=== PATIENT | female | born 1950 | race Caucasian/White ===

== ENCOUNTER → 2017-01-10 | Outpatient (CLI) | payer MEDICARE ==
[2017-01-10 14:41] LABS: ABSOLUTE EOSINOPHILS # (AUTO) 0.1 10^3/uL (0.0-0.6); ABSOLUTE LYMPHOCYTES (AUTO) 0.4 10^3/uL (0.5-4.7); ABSOLUTE MONOCYTES (AUTO) 0.4 10^3/uL (0.1-1.4); ABSOLUTE NEUT (AUTO) 3.5 10^3/uL (1.7-8.2); BASOPHILS % (AUTO) 0.8 % (0-2); EOSINOPHILS % (AUTO) 1.1 % (0-6); HEMATOCRIT 36.5 % (36.0-47.0); HEMOGLOBIN 12.3 g/dL (12.0-15.5); HGB HCT DIFFERENCE 0.4; LYMPHOCYTES % (AUTO) 9.9 % (13-45); MEAN CORPUSCULAR HEMOGLOBIN 30.2 pg (27.0-33.4); MEAN CORPUSCULAR HGB CONC 33.7 g/dL (32.0-36.0); MEAN CORPUSCULAR VOLUME 90 fl (80-97); MONOCYTES % (AUTO) 9.4 % (3-13); RED BLOOD COUNT 4.07 10^6/uL (3.72-5.28); RED CELL DISTRIBUTION WIDTH 15.3 % (11.5-14.0); SEGMENTED NEUTROPHILS % (AUTO) 78.8 % (42-78); WHITE BLOOD COUNT 4.5 10^3/uL (4.0-10.5)
== END ==
LOC: OD 13:09
PROVIDERS: ATTEND Specialist
DX: R10.9 Unspecified abdominal pain (principal); R97.0 Elevated carcinoembryonic antigen [CEA]; C25.0 Malignant neoplasm of head of pancreas
CPT/HCPCS: 36415; 82378; 85025

== ENCOUNTER → 2017-03-13 | Outpatient (CLI) | payer MEDICARE ==
[~2017-03-13] MED LIST: AMINOPHYLLINE INJ/PF 250 MG/10 ML SDV IV ONE; REGADENOSON INJ 0.4 MG/5 ML DISP.SYRIN IV ONE
--- NOTE | 2017-03-14 14:35 | RADIOLOGY REPORT ---
STRESS TEST REPORT PATIENT NAME: ALEX CAICEDO ROOM#: DATE OF SERVICE: 03/13/2017 AGE: 66Y ORDER#: [id number] REFERRING MD: BERNABE JOY M.D., [facility] INDICATION: For assessment of chest pains. PROCEDURE PERFORMED REST/STRESS SINGLE ISOTOPE CARDIOLITE SPECT IMAGING WITH IV LEXISCAN STRESS AND GATED SPECT IMAGING CLINICAL HISTORY This is a 66 year old female with no known coronary artery disease, but has coronary risk factors of hypercholesterolemia and family history of NC. Current symptomatology includes chest pains. PROCEDURE The patient received IV Lexiscan 0.4 mg infused over 10 seconds and flushed. The resting heart rate was 62 bpm and increased to 92 bpm at end infusion. The patient had symptoms of feeling strange in the head from shortness of breath, but no chest pains. The resting 12 lead EKG showed normal sinus rhythm or coronary sinus rhythm at 64 bpm, ST segments were normal. At end infusion, a few mild, nonspecific STT changes were seen in the inferolateral leads up to 0.5 mm depression. Myocardial perfusion imaging was performed at rest 60 minutes following injection of 11.43 mCi Cardiolite. Ten seconds after the IV Lexiscan injection, patient was injected with 34 mCi Cardiolite and flushed. Gated post stress tomographic imaging was performed 60 minutes after stress. FINDINGS The overall quality of the study is poor. There was significant bowel uptake scattering into the inferior wall of the left ventricle on both the rest and stress studies. The left ventricular cavity is noted to be normal in size on both the rest and stress studies. There is no evidence of abnormal transient ischemic dilatation of the left ventricle. The TID ratio is 1.03. The SPECT images show no IV Lexiscan induced reversible perfusion defects and no fixed perfusion defects. The gated SPECT imaging shows normal motion contraction for all LV segments. The left ventricular ejection fraction was calculated to be 64%. IMPRESSION: MYOCARDIAL PERFUSION IMAGING IS NORMAL. THERE IS NO IV LEXISCAN INDUCED REVERSIBLE ISCHEMIA OR FIXED PERFUSION DEFECTS IN THE LEFT VENTRICLE. OVERALL LEFT VENTRICULAR SYSTOLIC FUNCTION WAS NORMAL WITH NO REGIONAL WALL MOTION ABNORMALITY. EJECTION FRACTION WAS 64%. NO PRIOR STUDIES FOR COMPARISON. INTERPRETING PHYSICIAN: CRISTA MOON M.D. /: KEISHA TT: [id number] ID: [id number] /: [id number] TD: [id number] JOB: [id number] cc:CRISTA MOON M.D. > [place]
== END ==
LOC: RAD 06:20
PROVIDERS: ATTEND Family Medicine
DX: R07.9 Chest pain, unspecified (principal)
CPT/HCPCS: 93017; 78452; A9500; J2785; J0280; Q9969

== ENCOUNTER → 2017-10-02 | Outpatient (CLI) | payer MEDICARE ==
--- NOTE | 2017-10-03 09:32 | RADIOLOGY REPORT (SQ) ---
EXAM DESCRIPTION: CT LUNG CANCER SCREENING COMPLETED DATE/TIME: 10/02/2017 9:42 am REASON FOR STUDY: F17.211 NICOTINE DEPENDENCE, CIGARETTES, IN REMISSION F17.211 NICOTINE DEPENDENCE , CIGARETTES, IN REMISSION Has the patient had a Chest CT scan within the past year? No Was the patient offered tobacco cessation counseling? Yes Was the patient engaged in shared decision making for this test? Yes Does the patient have signs or symptoms of Lung Cancer? No Is the patient a smoker? No How many packs per year? 365 How many years since quitting smoking? 3 years Patients age: 67 COMPARISON: None. TECHNIQUE: Low Dose CT scan performed of the chest without intravenous contrast for purposes of scre ening for lung cancer. Images reviewed with lung, soft tissue and bone windows. Reconstructed coron al and sagittal MPR images reviewed. All images stored on PACS. All CT scanners at this facility use dose modulation, iterative reconstruction, and/or weight based d osing when appropriate to reduce radiation dose to as low as reasonably achievable (ALARA). [facility]: Dose Right [facility]: CareDose [facility]: Dose Right [facility]: Teradose 4D [facility]: Smart [place] [employer] RADIATION DOSE: Up-to-date CT equipment and radiation dose reduction techniques were employed. CTDIv ol: 2.1 mGy. DLP: 83 mGy-cm. mGy. . LIMITATIONS: No technical limitations. FINDINGS: LUNG NODULES: Description: solid nodule(s) < 6mm. Size: Less than 4 mm diameter right l ateral lower lobe subpleural surface axial image 382/531. Less than 5 mm diameter, right lateral low er lobe subpleural surface axial image 390/531. REMAINING LUNGS AND PLEURA: No pleural effusions or calcifications. No pneumothorax. No scarrin g or interstitial changes. HILAR AND MEDIASTINAL STRUCTURES: No identified masses. No abnormal nodes. HEART AND VASCULAR STRUCTURES: No aortic aneurysm. No pericardial effusion. No cardiac devices. CORONARY ARTERY CALCIFICATIONS: Mild to moderate calcifications. UPPER ABDOMEN: No significant findings. Small hiatal hernia, old ventral hernia repair with mesh. F ine anatomic detail of upper abdominal structures not provided by CT low dose technique. THYROID AND OTHER SOFT TISSUES: No masses. No adenopathy. BONES: No significant finding. OTHER: No other significant findings. IMPRESSION: BENIGN FINDINGS IN THE LUNGS. NO OTHER CLINICALLY SIGNIFICANT/POTENTIALLY CLINICALLY SIGNIFICANT FINDINGS LUNGRADS: LUNGRADS: 2 BENIGN APPEARANCE OR BEHAVIOR. NODULES WITH A VERY LOW LIKELIHOOD OF BECOMIN G A CLINICALLY ACTIVE CANCER DUE TO SIZE OR LACK OF GROWTH. MODIFIER: NONE. RECOMMENDATION: Continue annual screening with LDCT in 12 months. COMMENT: CRITERIA: Solid nodule(s): < 6 mm; new < 4 mm. Part solid nodule(s): < 6 mm total diameter on baseline screening. Non solid nodule(s) (GGN): < 20 mm OR ? 20 and unchanged or slowly growing. Category 3 or 4 modules unchanged for ? 3 months. TECHNICAL DOCUMENTATION: JOB ID: [id number] Quality ID # [id number]: Final reports with documentation of one or more dose reduction techniques (e.g., Au tomated exposure control, adjustment of the mA and/or kV according to patient size, use of iterative reconstruction technique) 2011 [employer]
== END ==
LOC: RAD 09:25
PROVIDERS: ATTEND Family Medicine
DX: F17.211 Nicotine dependence, cigarettes, in remission (principal)
CPT/HCPCS: G0297

== ENCOUNTER 2017-10-08 07:58 | Day surgery (SDC) | payer MEDICARE, MEDICAID ==
--- NOTE | 2017-10-04 10:28 | HISTORY AND PHYSICAL E ---
History and Physical NAME: ALEX CAICEDO : 1950 AGE: 67Y ADMITTED: 10/05/2017 ROOM: HISTORY OF PRESENT ILLNESS: The patient does have history of polyps. She did have colonoscopy 2016, difficult colonoscopy. She did have right hemicolectomy. She did have tubular adenoma transverse colon and left colon tubular adenoma. MEDICATIONS: Advair, simvastatin, and vitamins. SOCIAL HISTORY: . She smokes electronic cigarettes. PAST SURGICAL HISTORY: She did have partial colectomy right ascending colon. REVIEW OF SYSTEMS: RESPIRATORY: COPD. CARDIAC: High cholesterol. FAMILY HISTORY: Father CA of prostate. Mom CA of the stomach. PHYSICAL EXAMINATION: VITAL SIGNS: Blood pressure 120/80, pulse 80, respirations 18, temperature 98. HEAD, EARS, EYES, NOSE AND THROAT: Normal. ABDOMEN: Soft. NEUROLOGIC: Exam negative. LABORATORY DATA: Recent CBC shows white count 12, hemoglobin 36. Her CEA is 2.1. Biopsy polyps 2014 showing adenoma polyp transverse colon, adenoma polyp left colon. CONCLUSION: Sessile colorectal polyps left colon and transverse colon. PLAN: Colonoscopy to be done in the OR with anesthesia standby, admit 10/05. DICTATING PHYSICIAN: ROSALIA LAZARO M.D. [id number] PHY#: [id number] ID: [id number] JOB#: [id number] ACCT: [id number] cc:ROSALIA LAZARO M.D. >
[~2017-10-08 07:58] MED LIST changes: -AMINOPHYLLINE INJ/PF 250 MG/10 ML SDV IV ONE; +LACTATED RINGERS 1000 ML IV PRN; +LIDOCAINE 0.5% INJ-PF (5 MG/ML) 50 ML SDV SUBCUT PRN; -REGADENOSON INJ 0.4 MG/5 ML DISP.SYRIN IV ONE
[2017-10-08] MEDS ORDERED: FENTANYL CITRATE INJ/PF 100 MCG/2 ML AMPUL ONE (09:50)
[2017-10-08] MEDS ORDERED: MIDAZOLAM 2 MG/2 ML INJ ONE (09:50)
[2017-10-08] MEDS ORDERED: PROPOFOL INJ 200 MG/20 ML VIAL IV ONE (09:51)
[2017-10-08] MEDS ORDERED: ONDANSETRON HCL INJ/PF 4 MG/2 ML SDV ONE (09:59)
[2017-10-08] MEDS ORDERED: GLUCAGON,HUMAN RECOMB 1 MG INJ ONE (10:40)
[2017-10-08] MEDS ORDERED: DIPHENHYDRAMINE HCL 50 MG/ML VIAL IV PRN (10:59)
[2017-10-08] MEDS ORDERED: PROMETHAZINE HCL INJ 25 MG/1 ML VIAL IV PRN (10:59)
[2017-10-08] MEDS ORDERED: FENTANYL CITRATE INJ/PF 100 MCG/2 ML AMPUL IV PRN ×3 (10:59)
[2017-10-08 12:03] LABS: ABSOLUTE LYMPHOCYTES (AUTO) 0.4 10^3/uL (0.5-4.7); ABSOLUTE MONOCYTES (AUTO) 0.7 10^3/uL (0.1-1.4); ABSOLUTE NEUT (AUTO) 6.4 10^3/uL (1.7-8.2); BASOPHILS % (AUTO) 0.2 % (0-2); EOSINOPHILS % (AUTO) 0.3 % (0-6); HEMATOCRIT 36.1 % (36.0-47.0); HEMOGLOBIN 12.3 g/dL (12.0-15.5); HGB HCT DIFFERENCE 0.8; LYMPHOCYTES % (AUTO) 5.9 % (13-45); MEAN CORPUSCULAR HEMOGLOBIN 30.5 pg (27.0-33.4); MEAN CORPUSCULAR HGB CONC 34.2 g/dL (32.0-36.0); MEAN CORPUSCULAR VOLUME 89 fl (80-97); RED BLOOD COUNT 4.04 10^6/uL (3.72-5.28); RED CELL DISTRIBUTION WIDTH 14.9 % (11.5-14.0); SEGMENTED NEUTROPHILS % (AUTO) 84.6 % (42-78); WHITE BLOOD COUNT 7.6 10^3/uL (4.0-10.5)
--- NOTE | 2017-10-08 12:11 | OPERATIVE REPORT E ---
Operative Report NAME: ALEX CAICEDO : 1950 AGE: 67Y DATE OF SURGERY: 10/08/2017 ROOM: PREOPERATIVE DIAGNOSES: 1. HISTORY OF POLYPS. 2. HISTORY OF RIGHT COLON RESECTIONS. POSTOPERATIVE DIAGNOSIS: MULTIPLE POLYPS IN THE PROXIMAL COLON, PROXIMAL TO THE ANASTOMOSIS, ABOUT 6 TO 8 POLYPS. SURGEON: ROSALIA LAZARO M.D. PROCEDURE: The patient had 6 TO 8 polyps between the anastomosis and the Urszula ink, which was injected somewhere in the mid-transverse colon. Above the Urszula ink to anastomosis, there were 6 to 8 polyps. They were all sessile. They all looked like adenomatous polyps. Multiple biopsies obtained. The distal colon, after the Urszula ink, looks normal. Descending colon normal and redundant. Rectosigmoid, there is a pedunculated polyp, which was resected with no difficulties. A pedunculated polyp in the rectosigmoid junction resected. Rectal exam normal. Rectosigmoid showed pedunculated polyp was seen on the way out. This was resected. Descending colon redundant. Difficult to intubate. Patient was done under anesthesia, standby propofol. Transverse colon as mentioned. Urszula ink in the middle. Proximal showed multiple polyps in ascending colon resected on previous surgery. CONCLUSION: Six to 8 colorectal polyps proximal to the Urszula ink injection. Rectosigmoid polyp resected. Procedure done in the OR with Anesthesia standby. PLAN: Patient needs exploratory lap. Most likely, she needs intraoperative colonoscopy prior to resection of the proximal colon. Baseline CBC, CEA, full liquid diet today. Expedite surgical consult, pending biopsy results. DICTATING PHYSICIAN: ROSALIA LAZARO M.D. [id number] PHY#: [id number] ID: [id number] JOB#: [id number] ACCT: [id number] cc:ROSALIA LAZARO M.D. >
--- NOTE | 2017-10-08 12:12 | DISCHARGE SUMMARY E ---
Discharge Summary NAME: ALEX CAICEDO : 1950 AGE: 67Y ADMITTED: 10/08/2017 DISCHARGED: 10/08/2017 HISTORY: Patient is 67, known to me. She had a colonoscopy 2005. It was a difficult colonoscopy. She did have right hemicolectomy, tubular adenoma in the left colon. Today's colonoscopy was completed to the anastomosis. Multiple polyps were seen proximally. Biopsy obtained. Urszula ink was used as a marker. The Urszula ink was proximal to the multiple right colon polyps. There was 1 pedunculated polyp in the rectosigmoid area, which was resected with a snare. DISCHARGE PLAN: Full liquid diet today. Hold aspirin and nonsteroidal 5 days. Repeat CBC, CEA, chem profile. Consider surgical consult after biopsy and pathology report available. DICTATING PHYSICIAN: ROSALIA LAZARO M.D. [id number] PHY#: [id number] ID: [id number] JOB#: [id number] ACCT: [id number] cc:ROSALIA LAZARO M.D. >
[2017-10-08 12:22] LABS: ALANINE AMINOTRANSFERASE 37 U/L (9-52); ALBUMIN 3.9 g/dL (3.5-5.0); ALKALINE PHOSPHATASE 65 U/L (38-126); ANION GAP 12 (5-19); ASPARTATE AMINO TRANSFERASE 23 U/L (14-36); BILIRUBIN,DIRECT 0.3 mg/dL (0.0-0.4); BILIRUBIN,TOTAL 0.5 mg/dL (0.2-1.3); BLOOD UREA NITROGEN 8 mg/dL (7-20); CALCIUM 9.6 mg/dL (8.4-10.2); CARBON DIOXIDE 24 mmol/L (22-30); CHLORIDE 102 mmol/L (98-107); CREATININE RESULT 0.76 mg/dL (0.52-1.25); GLUCOSE 102 mg/dL (75-110); POTASSIUM 3.9 mmol/L (3.6-5.0); SODIUM 138.3 mmol/L (137-145); TOTAL PROTEIN 6.1 g/dL (6.3-8.2)
[2017-10-08 12:52] LABS: CARCINOEMBRYONIC ANTIGEN 1.8 ng/mL (<3.0)
[2017-10-08 14:01] VITALS: BP 144/56
== END 2017-10-08 13:00 | disposition home or self-care (01) ==
LOC: END 07:58
PROVIDERS: ATTEND Specialist
PROC: 0DBK8ZX Excision of Ascending Colon, Via Natural or Artificial Opening Endoscopic, Diagnostic (ICD-10-PCS; principal; 2017-10-08 10:00)
PROC: 0DBF8ZX Excision of Right Large Intestine, Via Natural or Artificial Opening Endoscopic, Diagnostic (ICD-10-PCS; 2017-10-08 10:00)
PROC: 3E0H8GC Introduction of Other Therapeutic Substance into Lower GI, Via Natural or Artificial Opening Endoscopic (ICD-10-PCS; 2017-10-08 10:00)
DX: Z12.11 Encounter for screening for malignant neoplasm of colon (principal); R97.0 Elevated carcinoembryonic antigen [CEA]; D12.2 Benign neoplasm of ascending colon; K63.5 Polyp of colon; F17.290 Nicotine dependence, other tobacco product, uncomplicated; J44.9 Chronic obstructive pulmonary disease, unspecified; Z90.49 Acquired absence of other specified parts of digestive tract; Z79.899 Other long term (current) drug therapy
CPT/HCPCS: 45380; 45385; 45381; 36415; 82378; 85025; 80053; 88305 ×2; J2250; J1610; J2405; J2704; 810; J3010

== ENCOUNTER 2018-04-02 07:47 | Day surgery (SDC) | payer MEDICARE, OTHER ==
[~2018-04-02 07:47] MED LIST changes: +MIDAZOLAM 2 MG/2 ML INJ ONE; +PROPOFOL INJ 200 MG/20 ML VIAL IV ONE
[2018-04-02] MEDS ORDERED: PROPOFOL INJ 200 MG/20 ML VIAL IV ONE ×2 (09:41→10:48)
[2018-04-02] MEDS ORDERED: FENTANYL CITRATE INJ/PF 100 MCG/2 ML AMPUL IV PRN ×3 (10:02)
[2018-04-02] MEDS ORDERED: MEPERIDINE HCL/PF INJ 25 MG/1 ML DISP.SYRIN IV PRN (10:02)
[2018-04-02] MEDS ORDERED: PROMETHAZINE HCL INJ 25 MG/1 ML VIAL IV PRN (10:02)
[2018-04-02] MEDS ORDERED: DIPHENHYDRAMINE HCL 50 MG/ML VIAL IV PRN (10:02)
--- NOTE | 2018-04-02 11:08 | Operative Report ---
Operative Report DATE OF SURGERY: 04/02/18 PREOPERATIVE DIAGNOSIS: 1. History of multiple colon polyps. 2. Previous resection of a large, sessile polyp POSTOPERATIVE DIAGNOSIS: 1. Multiple colon polyps. 2. Persistence of large sessile polyp, further resection performed. OPERATION: 1. Colonoscopy to the ileocolic anastomosis. 2. Snare polypectomy of multiple colon polyps. SURGEON: BEVERLY SWEENEY ANESTHESIA: LMAC TISSUE REMOVED OR ALTERED: 1. Distal transverse colon polyp 3. 2. Colon polyp at 110 cm. 3. Colon polyps at 85 cm 5. 4. Large, sessile colon polyp at 75 cm (removed piecemeal). 5. Colon polyp at 73 cm 2. 6. Colon polyp at 70 cm COMPLICATIONS: None apparent ESTIMATED BLOOD LOSS: Minimal PROCEDURE: Drains/implants: None. After informed consent was obtained, the patient was laid in the left lateral decubitus position in the OR. The endoscope was inserted into the rectum. It was passed up the rectum, sigmoid colon, descending colon, across the transverse colon, to the ileocolic anastomosis. The anastomosis was verified. The prep was good. Scope was withdrawn past the transverse colon, descending colon, sigmoid colon, and into the rectum. There were multiple polyps identified. Some were pedunculated, some were sessile. All polyps identified were removed in their entirety. Of note, at 75 cm a previously tattooed sessile polyp was identified. It appears to be a small remnant of the previously excised polyp. The remainder of this polyp was removed via snare polypectomy. Once the scope reached the rectum, a retroflexion maneuver was performed. No significant internal hemorrhoids were identified. Air was then suctioned from the rectum, the scope was removed, and the procedure was concluded. All sponge, instrument, and needle counts were correct 2. Condition: Stable.
[2018-04-02 12:16] VITALS: BP 141/64
== END 2018-04-02 12:15 | disposition home or self-care (01) ==
LOC: OROUT 07:47
PROVIDERS: ATTEND Surgery
DX: Z12.11 Encounter for screening for malignant neoplasm of colon (principal); D12.3 Benign neoplasm of transverse colon; D12.6 Benign neoplasm of colon, unspecified; D55.9 Anemia due to enzyme disorder, unspecified; K21.9 Gastro-esophageal reflux disease without esophagitis; J44.9 Chronic obstructive pulmonary disease, unspecified; Z79.82 Long term (current) use of aspirin; Z79.51 Long term (current) use of inhaled steroids; Z79.899 Other long term (current) drug therapy
CPT/HCPCS: 45385; 88305 ×2; J2250; J2704; 811

== ENCOUNTER 2018-04-02 15:21 | Inpatient (IN) | payer MEDICARE, OTHER ==
[2018-04-02] MEDS ORDERED: NORMAL SALINE 1000 ML 1,000 ML IV ONE (15:54)
[2018-04-02] MEDS ORDERED: ONDANSETRON HCL INJ/PF 4 MG/2 ML SDV IV ONE (15:59)
[2018-04-02 16:06] LABS: HEMATOCRIT 36.3 % (36.0-47.0); HEMOGLOBIN 11.9 g/dL (12.0-15.5); MEAN CORPUSCULAR HEMOGLOBIN 28.8 pg (27.0-33.4); MEAN CORPUSCULAR HGB CONC 32.9 g/dL (32.0-36.0); MEAN CORPUSCULAR VOLUME 88 fl (80-97); PLATELET COUNT 293 10^3/uL (150-450); RED BLOOD COUNT 4.15 10^6/uL (3.72-5.28); RED CELL DISTRIBUTION WIDTH 14.5 % (11.5-14.0); WHITE BLOOD COUNT 8.4 10^3/uL (4.0-10.5)
[2018-04-02 16:20] LABS: ALANINE AMINOTRANSFERASE 31 U/L (9-52); ALBUMIN 3.6 g/dL (3.5-5.0); ALKALINE PHOSPHATASE 61 U/L (38-126); ANION GAP 11 (5-19); ASPARTATE AMINO TRANSFERASE 18 U/L (14-36); BILIRUBIN,DIRECT 0.2 mg/dL (0.0-0.4); BILIRUBIN,TOTAL 0.4 mg/dL (0.2-1.3); BLOOD UREA NITROGEN 8 mg/dL (7-20); CALCIUM 9.2 mg/dL (8.4-10.2); CARBON DIOXIDE 26 mmol/L (22-30); CHLORIDE 100 mmol/L (98-107); GLUCOSE 113 mg/dL (75-110); POTASSIUM 3.6 mmol/L (3.6-5.0); SODIUM 136.8 mmol/L (137-145); TOTAL PROTEIN 5.8 g/dL (6.3-8.2)
[2018-04-02 16:27] LABS: ABSOLUTE LYMPHOCYTES# (MANUAL) 0.3 10^3/uL (0.5-4.7); ABSOLUTE MONOCYTES # (MANUAL) 0.5 10^3/uL (0.1-1.4); ABSOLUTE NEUTROPHILS# (MANUAL) 7.6 10^3/uL (1.7-8.2); ANISOCYTOSIS SLIGHT; BASOPHILS % (MANUAL) 0 % (0-2); EOSINOPHILS % (MANUAL) 0 % (0-6); LYMPHOCYTES % (MANUAL) 4 % (13-45); MONOCYTES % (MANUAL) 6 % (3-13); PLATELET COMMENT ADEQUATE; SEGMENTED NEUTROPHILS % (MAN) 90 % (42-78); TOTAL CELLS COUNTED 100; TOXIC GRANULATION SLIGHT
--- NOTE | 2018-04-02 16:41 | RADIOLOGY REPORT (SQ) ---
EXAM DESCRIPTION: KUB/ABDOMEN (SINGLE VIEW) COMPLETED DATE/TIME: 04/02/2018 4:27 pm REASON FOR STUDY: colonoscopy today, lethargy, chills, n/v COMPARISON: None. NUMBER OF VIEWS: One view. TECHNIQUE: Supine radiographic image of the abdomen acquired. LIMITATIONS: None. FINDINGS: BOWEL GAS PATTERN: Normal bowel gas pattern. No dilated loops. CALCIFICATIONS: No suspicious calcifications. SOFT TISSUES: No gross mass or suggestion of organomegaly. HARDWARE: Laparoscopic tacks from umbilical hernia repair BONES: No acute fracture. No worrisome bone lesions. OTHER: Asymmetric left lower lobe airspace disease is present worrisome for aspiration. This report was called to Rosario in the emergency room. IMPRESSION: Nonobstructive bowel gas pattern. Left lower lobe infiltrate worrisome for aspiration. TECHNICAL DOCUMENTATION: JOB ID: [id number] [employer]- All Rights Reserved Reading location - IP/workstation name: [email or web address]
--- NOTE | 2018-04-02 16:42 | RADIOLOGY REPORT (SQ) ---
EXAM DESCRIPTION: CHEST 2 VIEWS COMPLETED DATE/TIME: 04/02/2018 4:22 pm REASON FOR STUDY: colonoscopy today, n/v/fever/chills COMPARISON: CT chest 10/02/2017 EXAM PARAMETERS: NUMBER OF VIEWS: two views TECHNIQUE: Digital Frontal and Lateral radiographic views of the chest acquired. RADIATION DOSE: NA LIMITATIONS: none FINDINGS: LUNGS AND PLEURA: New lingular and left lower lobe airspace disease worrisome for aspirati on. Right lung hyperinflated and free of focal infiltrates. No right or left pleural effusion or pneumothorax. MEDIASTINUM AND HILAR STRUCTURES: No masses or contour abnormalities. HEART AND VASCULAR STRUCTURES: Heart normal size. No evidence for failure. BONES: No acute findings. HARDWARE: None in the chest. OTHER: No other significant finding. IMPRESSION: Lingular and Left lower lobe airspace disease worrisome for aspiration pneumonia. TECHNICAL DOCUMENTATION: JOB ID: [id number] [employer]- All Rights Reserved Reading location - IP/workstation name: [email or web address]
[2018-04-02] MEDS ORDERED: ACETAMINOPHEN 325 MG TABLET PO ONE (16:43)
--- NOTE | 2018-04-02 16:45 | ER Document Report ---
ED GI/ - General Chief Complaint: Abdominal Pain Stated Complaint: FOLLOW UP Time Seen by Provider: 04/02/18 15:41 Mode of Arrival: Medic Information source: Patient, Relative Notes: Patient is a 67-year-old female with COPD who presents to the ER today for nausea, vomiting, chills and cough after having a colonoscopy here by Dr. Ordoñez , surgeon this morning who removed 13 polyps. Patient states that she was nauseous after the procedure, went home and then daughter states that she proceeded to have multiple vomiting/coughing episodes. Daughter does state that a few hours ago she did have a violent coughing/vomiting episode. Patient does not have any shortness of breath or wheezing, states that she is not on oxygen at home. She denies any sick symptoms before the colonoscopy today, daughter wrote down her temperature that she had during the colonoscopy which is 97.7 this morning. TRAVEL OUTSIDE OF THE [place] IN LAST 30 DAYS: No - Related Data Allergies/Adverse Reactions: No Known Allergies Allergy (Verified 04/02/18 15:55) Past Medical History - General Information source: Patient - Social History Smoking Status: Former Smoker Chew tobacco use (# tins/day): No Frequency of alcohol use: None Drug Abuse: None Family History: Reviewed & Not Pertinent Patient has suicidal ideation: No Patient has homicidal ideation: No - Past Medical History Cardiac Medical History: Denies: Hx Coronary Artery Disease, Hx Heart Attack, Hx Hypertension Pulmonary Medical History: Reports: Hx COPD - advair Denies: Hx Asthma, Hx Bronchitis, Hx Pneumonia Neurological Medical History: Denies: Hx Cerebrovascular Accident, Hx Seizures Renal/ Medical History: Denies: Hx Peritoneal Dialysis Musculoskeltal Medical History: Denies Hx Arthritis Past Surgical History: Reports: Hx Abdominal Surgery - colon resection - 2015- [facility]. Denies: Hx Hysterectomy - Immunizations Hx Diphtheria, Pertussis, Tetanus Vaccination: - UNK Hx Pneumococcal Vaccination: 11/19/14 Review of Systems - Review of Systems Constitutional: See HPI EENT: No symptoms reported Cardiovascular: No symptoms reported Respiratory: No symptoms reported Gastrointestinal: See HPI Genitourinary: No symptoms reported Female Genitourinary: No symptoms reported Musculoskeletal: No symptoms reported Skin: No symptoms reported Hematologic/Lymphatic: No symptoms reported Neurological/Psychological: No symptoms reported Physical Exam - Vital signs Vitals: Temp Pulse Resp BP Pulse Ox 100.3 F 97 18 111/47 L 89 L 04/02/18 15:27 04/02/18 15:27 04/02/18 15:27 04/02/18 15:27 04/02/18 15:27 - Notes Notes: PHYSICAL EXAMINATION: GENERAL: Mildly ill-appearing, laying in position covered with blanket, but in no acute distress. HEAD: Atraumatic, normocephalic. EYES: Pupils equal round and reactive to light, extraocular movements intact, sclera anicteric, conjunctiva are normal. ENT: ear canals without erythema or foreign body, TMs pearly grider with good bony landmarks, nares patent, oropharynx clear without exudates. Moist mucous membranes. Airway patent NECK: Normal range of motion, supple without lymphadenopathy LUNGS: On nasal cannula oxygen, otherwise CTAB and equal. No wheezes rales or rhonchi. HEART: Regular rate and rhythm without murmurs ABDOMEN: Soft, no tenderness. No guarding, no rebound BACK: no vertebral tenderness, normal ROM GI/: no CVA tenderness EXTREMITIES: Normal range of motion, no pitting edema. No cyanosis. NEUROLOGICAL: Cranial nerves grossly intact. Normal sensory/motor exams. PSYCH: Normal mood, normal affect. SKIN: Warm, Dry, normal turgor, no rashes or lesions noted Course - Re-evaluation Re-evalutation: 04/02/18 16:45 Lab work is unremarkable today including a normal white blood cell count and lactic acid, however chest x-ray reveals an aspiration pneumonia left lower lobe. Patient started on IV Levaquin, given Tylenol orally as she did have a temperature of 100.3F on arrival. Dr. Song accepts admission at this time for aspiration pneumonia. Patient did come in 89% on room air, placed on 2 L of oxygen is now at 97% and not tachypneic or tachycardic. She did not meet SIRS criteria. 04/02/18 16:54 Blood cultures are pending at this time. - Vital Signs Vital signs: Temp Pulse Resp BP Pulse Ox 98.9 F 97 18 130/64 H 96 04/02/18 18:34 04/02/18 15:27 04/02/18 18:34 04/02/18 18:00 04/02/18 18:34 - Laboratory Result Diagrams: 04/02/18 15:48 04/02/18 15:48 Laboratory results interpreted by me: 04/02/18 04/02/18 15:48 15:48 Hgb 11.9 L RDW 14.5 H Seg Neuts % (Manual) 90 H Lymphocytes % (Manual) 4 L Abs Lymphs (Manual) 0.3 L Sodium 136.8 L Glucose 113 H Total Protein 5.8 L Discharge - Discharge Clinical Impression: Aspiration pneumonia Qualifiers: Aspiration pneumonia type: unspecified Laterality: left Lung location: lower lobe of lung Qualified Code(s): J69.0 - Pneumonitis due to inhalation of food and vomit Condition: Stable Disposition: ADMITTED INPATIENT Admitting Provider: Sarah - [facility] Admitted: Telemetry
[2018-04-02] MEDS ORDERED: IPRATROPIUM/ALBUTEROL 0.5-2.5 MG/3 ML AMPUL NEB PRN (16:54)
[2018-04-02] MEDS ORDERED: NORMAL SALINE 1000 ML 1,000 ML IV PRN (16:54)
[2018-04-02] MEDS ORDERED: LEVOFLOXACIN 500 MG/D5W RTU 500 MG/100 ML RTUPB IV SCH (17:00)
[2018-04-02] MEDS ORDERED: ONDANSETRON HCL INJ/PF 4 MG/2 ML SDV IV PRN (17:16)
[2018-04-02] MEDS ORDERED: OXYCODONE HCL IR 5 MG TABLET PO PRN (17:16)
[2018-04-02] MEDS ORDERED: LEVOFLOXACIN 500 MG/D5W RTU 500 MG/100 ML RTUPB IV ONE (17:30)
--- NOTE | 2018-04-02 17:30 | PDOC H&P ---
History of Present Illness Admission Date/PCP: 04/02/18 17:01 GLENDY JOY MD Patient complains of: Fever, cough, nausea and vomiting History of Present Illness: ALEX CAICEDO is a 67 year old female female with COPD, not on home oxygen, who presents to the ER today for nausea, vomiting, chills and cough after having a colonoscopy here by Dr. Jay, surgeon this morning. She states he removed 13 polyps. Patient states that she was nauseous after the procedure, went home and then daughter states that she proceeded to have multiple vomiting/coughing episodes. Patient states she had a couple episodes of vomiting last night while doing colonoscopy prep. Daughter does state that a few hours ago she did have a violent coughing/vomiting episode. Patient does not have any shortness of breath or wheezing at the present time at rest. Past Medical History Cardiac Medical History: Denies: Coronary Artery Disease, Myocardial Infarction, Hypertension Pulmonary Medical History: Reports: Chronic Obstructive Pulmonary Disease (COPD ) - advair Denies: Asthma, Bronchitis, Pneumonia EENT Medical History: Reports: None Neurological Medical History: Denies: Seizures Endocrine Medical History: Reports: None Renal/ Medical History: Reports: None Malignancy Medical History: Reports: None GI Medical History: Reports: None Musculoskeltal Medical History: Reports: None Denies: Arthritis Skin Medical History: Reports: None Psychiatric Medical History: Reports: None Traumatic Medical History: Reports: None Hematology: Reports: Anemia - 1999 Infectious Medical History: Reports: None Past Surgical History Past Surgical History: Denies: Hysterectomy Social History Information Source: Patient Lives with: Alone Smoking Status: Former Smoker Frequency of Alcohol Use: Occasional Hx Recreational Drug Use: No Hx Prescription Drug Abuse: No - Advance Directive Resuscitation Status: Full Code Surrogate healthcare decision maker:: Rita Nathan Family History Family History: Hypertension Parental Family History Reviewed: Yes Children Family History Reviewed: Yes Sibling(s) Family History Reviewed.: Yes Medication/Allergy Home Medications: Aspirin [Aspirin EC] 81 mg PO Q2D 04/28/15 Cholecalciferol (Vitamin D3) [Vitamin D] 50,000 unit PO TH@1000 04/28/15 Fluticasone/Salmeterol [Advair 250-50 Diskus 28 dose] 1 inh IH Q12 04/28/15 Vitamin B Complex 1 cap PO DAILY 04/28/15 Omeprazole 40 mg PO BID 12/27/15 Pravastatin Sodium 20 mg PO QHS 12/27/15 Cetirizine HCl [Zyrtec] 10 mg PO DAILY 03/27/18 Allergies/Adverse Reactions: No Known Allergies Allergy (Verified 04/02/18 15:55) Review of Systems Constitutional: PRESENT: anorexia, chills, weakness Eyes: ABSENT: visual disturbances Ears: ABSENT: hearing changes Cardiovascular: ABSENT: chest pain, dyspnea on exertion, edema, orthropnea, palpitations Respiratory: PRESENT: cough Gastrointestinal: PRESENT: diarrhea, nausea, vomiting Genitourinary: ABSENT: dysuria, hematuria Musculoskeletal: ABSENT: joint swelling Integumentary: ABSENT: rash, wounds Neurological: ABSENT: abnormal gait, abnormal speech, confusion, dizziness, focal weakness, syncope Psychiatric: ABSENT: anxiety, depression, homidical ideation, suicidal ideation Endocrine: ABSENT: cold intolerance, heat intolerance, polydipsia, polyuria Hematologic/Lymphatic: ABSENT: easy bleeding, easy bruising Physical Exam Vital Signs: Temp Pulse Resp BP Pulse Ox 100.3 F 97 22 H 126/69 H 94 04/02/18 15:27 04/02/18 15:27 04/02/18 17:04 04/02/18 17:04 04/02/18 17:04 General appearance: PRESENT: no acute distress, well-developed, well-nourished Head exam: PRESENT: atraumatic, normocephalic Eye exam: PRESENT: conjunctiva pink, EOMI, PERRLA. ABSENT: scleral icterus Ear exam: PRESENT: normal external ear exam Mouth exam: PRESENT: moist, tongue midline Neck exam: ABSENT: carotid bruit, JVD, lymphadenopathy, thyromegaly Respiratory exam: PRESENT: crackles - left base, symmetrical, unlabored Cardiovascular exam: PRESENT: RRR. ABSENT: diastolic murmur, rubs, systolic murmur Pulses: PRESENT: normal dorsalis pedis pul Vascular exam: PRESENT: normal capillary refill GI/Abdominal exam: PRESENT: normal bowel sounds, soft. ABSENT: distended, guarding, mass, organolmegaly, rebound, tenderness Rectal exam: PRESENT: deferred Extremities exam: PRESENT: full ROM. ABSENT: calf tenderness, clubbing, pedal edema Musculoskeletal exam: PRESENT: ambulatory, full ROM, normal inspection Neurological exam: PRESENT: alert, awake, oriented to person, oriented to place , oriented to time, oriented to situation, CN II-XII grossly intact. ABSENT: motor sensory deficit Psychiatric exam: PRESENT: appropriate affect, normal mood. ABSENT: homicidal ideation, suicidal ideation Skin exam: PRESENT: dry, intact, warm. ABSENT: cyanosis, rash Results Impressions: KUB X-Ray 04/02/18 15:54 IMPRESSION: Nonobstructive bowel gas pattern. Left lower lobe infiltrate worrisome for aspiration. Chest X-Ray 04/02/18 16:04 IMPRESSION: Lingular and Left lower lobe airspace disease worrisome for aspiration pneumonia. Assessment & Plan - Diagnosis (1) Aspiration pneumonia Qualifiers: Aspiration pneumonia type: unspecified Laterality: left Lung location: lower lobe of lung Qualified Code(s): J69.0 - Pneumonitis due to inhalation of food and vomit Is this a current diagnosis for this admission?: Yes Plan: Patient was started on IV levaquin and clindamycin after blood cultures x 2 were obtained. Vitals signs are stable no signs of sepsis (2) COPD (chronic obstructive pulmonary disease) Qualifiers: Emphysema type: unspecified Is this a current diagnosis for this admission?: Yes Plan: Continue home inhalers, prn duoneb and mucinex (3) Nausea and vomiting Qualifiers: Vomiting Intractability: unspecified Is this a current diagnosis for this admission?: Yes Plan: Secondary to colonoscopy prep. Prn zofran. Advance diet as tolerates (4) GERD (gastroesophageal reflux disease) Qualifiers: Esophagitis presence: esophagitis presence not specified Qualified Code(s) : K21.9 - Gastro-esophageal reflux disease without esophagitis Is this a current diagnosis for this admission?: Yes Plan: Continue PPI - Time Time Spent: 50 to 70 Minutes Critical Time spent with patient: 25-34 minutes Medications reviewed and adjusted accordingly: Yes
[2018-04-02] MEDS ORDERED: ENOXAPARIN SODIUM INJ 40 MG/0.4 ML DISP.SYRIN SUBCUT ONE (18:00)
[2018-04-02 18:32] LABS: APPEARANCE,URINE CLEAR; BILIRUBIN,URINE NEGATIVE (NEGATIVE); COLOR,URINE STRAW; GLUCOSE, URINE NEGATIVE (NEGATIVE); KETONES,URINE TRACE mg/dL (NEGATIVE); LEUKOCYTE ESTERASE,URINE NEGATIVE (NEGATIVE); NITRITE,URINE NEGATIVE (NEGATIVE); PROTEIN,URINE NEGATIVE (NEGATIVE); URINE SPECIFIC GRAVITY 1.003; UROBILINOGEN,URINE NEGATIVE mg/dL (<2.0)
--- NOTE | 2018-04-02 18:59 | PDOC CONSULTATION ---
Consultation Consult Date: 04/02/18 Consult reason:: post-colonoscopy LLL pneumonia History of Present Illness Admission Date/PCP: 04/02/18 17:01 GLENDY JOY MD Patient complains of: fever chills after colonosocpy with polypectomy today History of Present Illness: ALEX CAICEDO is a 67 year old female s/p colonoscopy with 13 polypectomies done today, who presents to the ER with a c/o chills, fever, and coughing. She underwent a prolonged colonoscopy during which 13 polyps were removed. She cordova had a right colectomy short time ago. Past Medical History Cardiac Medical History: Denies: Coronary Artery Disease, Myocardial Infarction, Hypertension Pulmonary Medical History: Reports: Chronic Obstructive Pulmonary Disease (COPD ) - advair Denies: Asthma, Bronchitis, Pneumonia EENT Medical History: Reports: None Neurological Medical History: Denies: Seizures Endocrine Medical History: Reports: None Renal/ Medical History: Reports: None Malignancy Medical History: Reports: None GI Medical History: Reports: None Musculoskeltal Medical History: Reports: None Denies: Arthritis Skin Medical History: Reports: None Psychiatric Medical History: Reports: None Traumatic Medical History: Reports: None Hematology: Reports: Anemia - 2000 Infectious Medical History: Reports: None Past Surgical History Past Surgical History: Denies: Hysterectomy Social History Lives with: Alone Smoking Status: Former Smoker Frequency of Alcohol Use: Occasional Hx Recreational Drug Use: No Hx Prescription Drug Abuse: No - Advance Directive Resuscitation Status: Full Code Family History Family History: Reviewed & Not Pertinent Parental Family History Reviewed: No Children Family History Reviewed: No Sibling(s) Family History Reviewed.: No Medication/Allergy Home Medications: Aspirin [Aspirin EC] 81 mg PO Q2D 04/28/15 Cholecalciferol (Vitamin D3) [Vitamin D] 50,000 unit PO TH@1000 04/28/15 Fluticasone/Salmeterol [Advair 250-50 Diskus 28 dose] 1 inh IH Q12 04/28/15 Vitamin B Complex 1 cap PO DAILY 04/28/15 Omeprazole 40 mg PO BID 12/27/15 Pravastatin Sodium 20 mg PO QHS 12/27/15 Cetirizine HCl [Zyrtec] 10 mg PO DAILY 03/27/18 Allergies/Adverse Reactions: No Known Allergies Allergy (Verified 04/02/18 15:55) Physical Exam Vital Signs: Temp Pulse Resp BP Pulse Ox 98.9 F 97 18 130/64 H 96 04/02/18 18:34 04/02/18 15:27 04/02/18 18:34 04/02/18 18:00 04/02/18 18:34 General appearance: PRESENT: cooperative, mild distress Eye exam: PRESENT: EOMI Neck exam: PRESENT: full ROM Respiratory exam: PRESENT: rhonchi - left side, wheezes - left side Cardiovascular exam: PRESENT: RRR GI/Abdominal exam: PRESENT: normal bowel sounds, soft Results Laboratory Results: 04/02/18 18:14 Urine Color STRAW Urine Appearance CLEAR Urine pH 6.0 Ur Specific [place] 1.003 Urine Protein NEGATIVE Urine Glucose (UA) NEGATIVE Urine Ketones TRACE H Urine Blood NEGATIVE Urine Nitrite NEGATIVE Ur Leukocyte Esterase NEGATIVE Urine WBC (Auto) 0 Impressions: KUB X-Ray 04/02/18 15:54 IMPRESSION: Nonobstructive bowel gas pattern. Left lower lobe infiltrate worrisome for aspiration. Chest X-Ray 04/02/18 16:04 IMPRESSION: Lingular and Left lower lobe airspace disease worrisome for aspiration pneumonia. Assessment & Plan - Diagnosis (1) Aspiration pneumonia Qualifiers: Aspiration pneumonia type: unspecified Laterality: left Lung location: lower lobe of lung Qualified Code(s): J69.0 - Pneumonitis due to inhalation of food and vomit Is this a current diagnosis for this admission?: Yes - Plan Summary Plan Summary: A/ patient after prolonged colonoscopy with 13 polypectomies today fever, cough, chills Chest Xray significant for LLL aspiration pneumonia postprocedural No acute General Surgery abdominal findings after colonoscopy P/ patient to be admitted by Hospitalist service for LLL aspiration pneumonia No plans of any intervention at this time.
[2018-04-02] MEDS: ACETAMINOPHEN 325 MG TABLET PO PRN (21:25)
[2018-04-02] MEDS ORDERED: CLINDAMYCIN PHOSPHATE 750 MG in DEXTROSE 5%-WATER 100 ML IV SCH (22:00)
[2018-04-02] MEDS ORDERED: (PENDING PHARMACY ID) (Pravastatin Sodium [Pravastatin Sodium] 20 MG) PO SCH (22:00)
[2018-04-02] MEDS ORDERED: ATORVASTATIN CALCIUM 10 MG TABLET PO SCH (22:00)
[2018-04-02] MEDS: FLUTICASONE/SALMETEROL DISKUS 250-50 MCG/DOSE IH SCH (22:20)
[2018-04-02] MEDS: FAMOTIDINE 20 MG TABLET PO SCH (22:20)
[2018-04-02] MEDS: GUAIFENESIN 600 MG TABLET.SA PO SCH (22:20)
[2018-04-02] MEDS: CLINDAMYCIN 600 MG/D5W RTU 600 MG/50 ML RTUPB IV SCH (22:21)
[2018-04-03] MEDS: ACETAMINOPHEN 325 MG TABLET PO PRN (04:39)
[2018-04-03 05:04] LABS: HEMATOCRIT 30.3 % (36.0-47.0); HEMOGLOBIN 10.2 g/dL (12.0-15.5); MEAN CORPUSCULAR HEMOGLOBIN 29.2 pg (27.0-33.4); MEAN CORPUSCULAR HGB CONC 33.5 g/dL (32.0-36.0); MEAN CORPUSCULAR VOLUME 87 fl (80-97); PLATELET COUNT 214 10^3/uL (150-450); RED BLOOD COUNT 3.47 10^6/uL (3.72-5.28); RED CELL DISTRIBUTION WIDTH 14.7 % (11.5-14.0); WHITE BLOOD COUNT 11.2 10^3/uL (4.0-10.5)
[2018-04-03 05:26] LABS: ANION GAP 9 (5-19); BLOOD UREA NITROGEN 8 mg/dL (7-20); CALCIUM 8.6 mg/dL (8.4-10.2); CARBON DIOXIDE 25 mmol/L (22-30); CHLORIDE 105 mmol/L (98-107); GLUCOSE 101 mg/dL (75-110); POTASSIUM 3.4 mmol/L (3.6-5.0); SODIUM 139.2 mmol/L (137-145)
[2018-04-03] MEDS: CLINDAMYCIN 600 MG/D5W RTU 600 MG/50 ML RTUPB IV SCH ×2 (06:13→14:43)
[2018-04-03] MEDS ORDERED: LANSOPRAZOLE 30 MG TAB.RAP.DR PO SCH (08:00)
--- NOTE | 2018-04-03 09:14 | PDOC PROGRESS REPORT ---
Subjective Progress Note for:: 04/03/18 Reason For Visit: Post-procedural Aspiration PNEUMONIA Physical Exam Vital Signs: Temp Pulse Resp BP Pulse Ox 98.1 F 74 16 125/44 L 96 04/02/18 21:05 04/03/18 08:00 04/03/18 08:00 04/02/18 21:05 04/03/18 08:00 Intake & Output 04/02/18 04/03/18 04/04/18 06:59 06:59 06:59 Weight 68.6 kg General appearance: PRESENT: no acute distress, cooperative Respiratory exam: PRESENT: clear to auscultation oliverio Cardiovascular exam: PRESENT: RRR GI/Abdominal exam: PRESENT: normal bowel sounds, soft Results Laboratory Results: 04/03/18 04:06 04/03/18 04:06 04/02/18 04/03/18 04/03/18 18:14 04:06 04:06 WBC 11.2 H RBC 3.47 L Hgb 10.2 L Hct 30.3 L MCV 87 MCH 29.2 MCHC 33.5 RDW 14.7 H Plt Count 214 Sodium 139.2 Potassium 3.4 L Chloride 105 Carbon Dioxide 25 Anion Gap 9 BUN 8 Creatinine 0.73 Est GFR ( Amer) > 60 Est GFR (Non-Af Amer) > 60 Glucose 101 Calcium 8.6 Urine Color STRAW Urine Appearance CLEAR Urine pH 6.0 Ur Specific [place] 1.003 Urine Protein NEGATIVE Urine Glucose (UA) NEGATIVE Urine Ketones TRACE H Urine Blood NEGATIVE Urine Nitrite NEGATIVE Ur Leukocyte Esterase NEGATIVE Urine WBC (Auto) 0 Impressions: KUB X-Ray 04/02/18 15:54 IMPRESSION: Nonobstructive bowel gas pattern. Left lower lobe infiltrate worrisome for aspiration. Chest X-Ray 04/02/18 16:04 IMPRESSION: Lingular and Left lower lobe airspace disease worrisome for aspiration pneumonia. Assessment & Plan - Diagnosis (1) Aspiration pneumonia Qualifiers: Aspiration pneumonia type: unspecified Laterality: left Lung location: lower lobe of lung Qualified Code(s): J69.0 - Pneumonitis due to inhalation of food and vomit Is this a current diagnosis for this admission?: Yes - Plan Summary Plan Summary: A/ S/p colonoscopy with 13 polypectomies yesterday Left side Aspiration Pneumonia on CXray P/ No acute General surgery issues identified I will sign off Patient to follow up with Dr. Ordoñez in the office 1-2 weeks after discharge
[2018-04-03] MEDS: GUAIFENESIN 600 MG TABLET.SA PO SCH (09:45)
[2018-04-03] MEDS: FAMOTIDINE 20 MG TABLET PO SCH (09:46)
[2018-04-03] MEDS: FLUTICASONE/SALMETEROL DISKUS 250-50 MCG/DOSE IH SCH (09:46)
[2018-04-03] MEDS ORDERED: CETIRIZINE 10 MG TABLET PO SCH (10:00)
[2018-04-03] MEDS ORDERED: MULTIVIT-STRESS FORMULA/ZINC TABLET PO SCH (10:00)
[2018-04-03] MEDS ORDERED: (PENDING PHARMACY ID) (Cetirizine Hcl [Zyrtec] 10 MG) PO SCH (10:00)
[2018-04-03] MEDS ORDERED: LACTOBACILLUS ACIDOPHILUS 250 MG TAB PO SCH (10:00)
[2018-04-03] MEDS ORDERED: ASPIRIN 81 MG TABLET, ENT COATED PO SCH (10:00)
[2018-04-03] MEDS ORDERED: ENOXAPARIN SODIUM INJ 40 MG/0.4 ML DISP.SYRIN SUBCUT SCH (10:00)
[2018-04-03] MEDS ORDERED: (PENDING PHARMACY ID) (Vitamin B Complex [Vitamin B Complex] 1 CAP) PO SCH (10:00)
[2018-04-03 13:24] VITALS: BP 118/41
--- NOTE | 2018-04-03 15:04 | PDOC DISCHARGE SUMMARY ---
General - Admit/Disc Date/PCP Admission Date/Primary Care Provider: 04/02/18 17:01 GLENDY JOY MD Discharge Date: 04/03/18 - Discharge Diagnosis (1) Aspiration pneumonia Is this a current diagnosis for this admission?: Yes (2) CAD (coronary artery disease) Is this a current diagnosis for this admission?: Yes (3) COPD (chronic obstructive pulmonary disease) Is this a current diagnosis for this admission?: Yes (4) GERD (gastroesophageal reflux disease) Is this a current diagnosis for this admission?: Yes - Additional Information Resuscitation Status: Full Code Discharge Diet: As Tolerated Discharge Activity: Activity As Tolerated Prescriptions: Lactobacillus Acidophilus [Bacid 250 mg Tablet] 500 mg PO BID 10 Days #20 tab Levofloxacin [Levaquin 750 mg Tablet] 750 mg PO DAILY 7 Days #7 tablet Home Medications: Cholecalciferol (Vitamin D3) [Vitamin D] 50,000 unit PO TH@1000 04/28/15 Fluticasone/Salmeterol [Advair 250-50 Diskus 28 dose] 1 inh IH Q12 04/28/15 Vitamin B Complex 1 cap PO DAILY 04/28/15 Omeprazole 40 mg PO BID 12/27/15 Pravastatin Sodium 20 mg PO QHS 12/27/15 Cetirizine HCl [Zyrtec] 10 mg PO DAILY 03/27/18 Aspirin [Aspirin EC] 81 mg PO Q2D #0 04/03/18 Lactobacillus Acidophilus [Bacid 250 mg Tablet] 500 mg PO BID 10 Days #20 tab Levofloxacin [Levaquin 750 mg Tablet] 750 mg PO DAILY 7 Days #7 tablet 04/03/18 History of Present Illness History of Present Illness: 67 yr old female with past medical history of R hemicolectomy COPD not on home oxygen CAD, [place] Hypertension Hyperlipidemia GERD The patient had a colonoscopy with 13 polypectomies done on 04/02/18 and presented to the ER with fever, chills, cough. She was diagnosed with L lower lobe aspiration pneumonia and was started on Levaquin and Clindamycin. She feels much better and is ready for dsicharge home. She is to follow up with her PCP in 1 week Physical Exam Vital Signs: Temp Pulse Resp BP Pulse Ox 98.3 F 81 14 118/41 L 98 04/03/18 13:00 04/03/18 13:00 04/03/18 13:00 04/03/18 13:00 04/03/18 13:00 Intake & Output 04/02/18 04/03/18 04/04/18 06:59 06:59 06:59 Weight 68.6 kg General appearance: PRESENT: no acute distress Respiratory exam: PRESENT: rhonchi, symmetrical, unlabored Results Laboratory Results: 04/03/18 04:06 04/03/18 04:06 04/02/18 04/03/18 04/03/18 18:14 04:06 04:06 WBC 11.2 H RBC 3.47 L Hgb 10.2 L Hct 30.3 L MCV 87 MCH 29.2 MCHC 33.5 RDW 14.7 H Plt Count 214 Sodium 139.2 Potassium 3.4 L Chloride 105 Carbon Dioxide 25 Anion Gap 9 BUN 8 Creatinine 0.73 Est GFR ( Amer) > 60 Est GFR (Non-Af Amer) > 60 Glucose 101 Calcium 8.6 Urine Color STRAW Urine Appearance CLEAR Urine pH 6.0 Ur Specific [place] 1.003 Urine Protein NEGATIVE Urine Glucose (UA) NEGATIVE Urine Ketones TRACE H Urine Blood NEGATIVE Urine Nitrite NEGATIVE Ur Leukocyte Esterase NEGATIVE Urine WBC (Auto) 0 04/03/18 10:05 Sputum Gram Stain - Final 04/03/18 10:05 Sputum Sputum Culture - Final Impressions: KUB X-Ray 04/02/18 15:54 IMPRESSION: Nonobstructive bowel gas pattern. Left lower lobe infiltrate worrisome for aspiration. Chest X-Ray 04/02/18 16:04 IMPRESSION: Lingular and Left lower lobe airspace disease worrisome for aspiration pneumonia. Qualifiers - * PATIENT BEING DISCHARGED WITH ANY OF THE FOLLOWING DIAGNOSIS: No Plan Time Spent: Greater than 30 Minutes
--- NOTE | 2018-04-03 15:05 | PDOC PROGRESS REPORT ---
Subjective Progress Note for:: 04/03/18 Subjective:: 67 yr old female with past medical history of R hemicolectomy COPD not on home oxygen CAD, [place] Hypertension Hyperlipidemia GERD She had a colonoscopy with 13 polypectomies done on 04/02/18 and presented to the ER with fever, chills, cough. She was diagnosed with L lower lobe aspiration pneumonia and was started on Levaquin and Clindamycin. Feels well, no complaints. Would like to go home. Reason For Visit: PNEUMONIA Physical Exam Vital Signs: Temp Pulse Resp BP Pulse Ox 98.5 F 74 16 109/43 L 96 04/03/18 07:49 04/03/18 08:00 04/03/18 08:00 04/03/18 07:49 04/03/18 08:00 Intake & Output 04/02/18 04/03/18 04/04/18 06:59 06:59 06:59 Weight 68.6 kg General appearance: PRESENT: no acute distress Mouth exam: PRESENT: moist Respiratory exam: PRESENT: rhonchi, symmetrical, unlabored Neurological exam: PRESENT: alert, awake Results Laboratory Results: 04/03/18 04:06 04/03/18 04:06 04/02/18 04/03/18 04/03/18 18:14 04:06 04:06 WBC 11.2 H RBC 3.47 L Hgb 10.2 L Hct 30.3 L MCV 87 MCH 29.2 MCHC 33.5 RDW 14.7 H Plt Count 214 Sodium 139.2 Potassium 3.4 L Chloride 105 Carbon Dioxide 25 Anion Gap 9 BUN 8 Creatinine 0.73 Est GFR ( Amer) > 60 Est GFR (Non-Af Amer) > 60 Glucose 101 Calcium 8.6 Urine Color STRAW Urine Appearance CLEAR Urine pH 6.0 Ur Specific [place] 1.003 Urine Protein NEGATIVE Urine Glucose (UA) NEGATIVE Urine Ketones TRACE H Urine Blood NEGATIVE Urine Nitrite NEGATIVE Ur Leukocyte Esterase NEGATIVE Urine WBC (Auto) 0 Impressions: KUB X-Ray 04/02/18 15:54 IMPRESSION: Nonobstructive bowel gas pattern. Left lower lobe infiltrate worrisome for aspiration. Chest X-Ray 04/02/18 16:04 IMPRESSION: Lingular and Left lower lobe airspace disease worrisome for aspiration pneumonia. Assessment & Plan - Diagnosis (1) Aspiration pneumonia Qualifiers: Aspiration pneumonia type: unspecified Laterality: left Lung location: lower lobe of lung Qualified Code(s): J69.0 - Pneumonitis due to inhalation of food and vomit Is this a current diagnosis for this admission?: Yes Plan: day 2 of antibiotics (2) CAD (coronary artery disease) Is this a current diagnosis for this admission?: Yes Plan: Continue outpatient meds (3) COPD (chronic obstructive pulmonary disease) Qualifiers: Emphysema type: unspecified Is this a current diagnosis for this admission?: Yes Plan: Continue outpatient meds (4) GERD (gastroesophageal reflux disease) Qualifiers: Esophagitis presence: esophagitis presence not specified Qualified Code(s) : K21.9 - Gastro-esophageal reflux disease without esophagitis Is this a current diagnosis for this admission?: Yes Plan: Continue PPI - Time Time Spent with patient: 25-34 minutes
[2018-04-03] MEDS ORDERED: LEVOFLOXACIN 500 MG/D5W RTU 500 MG/100 ML RTUPB IV SCH (18:00)
[2018-04-04] MEDS ORDERED: CHOLECALCIFEROL 50000 UNIT PO SCH (10:00)
[2018-04-04] MEDS ORDERED: LEVOFLOXACIN 750 MG TABLET PO SCH (10:00)
[2018-04-04] MEDS ORDERED: ERGOCALCIFEROL (VITAMIN D2) 50000 UNIT (1.25 MG) CAPSULE PO SCH (18:00)
== END 2018-04-03 16:20 | disposition home or self-care (01) | DRG 179 ==
LOC: ER 15:21 → EH 17:01 → 5 20:57
PROVIDERS: ADMIT Internal Medicine; ATTEND Surgery
PROC: 3E0F73Z Introduction of Anti-inflammatory into Respiratory Tract, Via Natural or Artificial Opening (ICD-10-PCS; principal; 2018-04-03)
DX: J69.0 Pneumonitis due to inhalation of food and vomit (principal); I25.10 Atherosclerotic heart disease of native coronary artery without angina pectoris; J44.9 Chronic obstructive pulmonary disease, unspecified; K21.9 Gastro-esophageal reflux disease without esophagitis; I11.0 Hypertensive heart disease with heart failure; E78.00 Pure hypercholesterolemia, unspecified; D64.9 Anemia, unspecified; Z60.2 Problems related to living alone; Z79.899 Other long term (current) drug therapy; Z90.49 Acquired absence of other specified parts of digestive tract; Z86.010 Personal history of colon polyps; Z87.891 Personal history of nicotine dependence; Z82.49 Family history of ischemic heart disease and other diseases of the circulatory system
CPT/HCPCS: 36415; 45385; 71046; 74018; 80048; 80053; 81001; 811; 83605; 85025; 85027; 87040; 87205; 88305; 94799; 96361; 96374; 99285; J1650; J1956; J2250; J2405; J2704; J3490; J7030

== ENCOUNTER 2018-04-04 09:49 | Emergency (ER) | payer MEDICARE, OTHER ==
--- NOTE | 2018-04-04 11:24 | ER Document Report ---
ED General - General Chief Complaint: Cough Stated Complaint: COUGHING UP BLOOD Time Seen by Provider: 04/04/18 11:05 Mode of Arrival: Ambulatory Information source: Patient, Relative Notes: Ms. Spicer is a 67-year-old female that presents with concern for coughing up blood. Patient was just discharged yesterday after found to have aspiration pneumonia. Patient was discharged with Levaquin. She states this morning she coughed and was concerned because she believed there was blood streaked in her sputum. This occurred once. The patient did show me the tissue with the sputum in it and I saw no bright red blood or clots. Patient had no further episodes since this morning. He denies any chest pain, shortness of breath. She states she is very anxious because her recently and needed to be flown out of this hospital. She does have an upcoming appointment with her primary care physician. TRAVEL OUTSIDE OF THE [place] IN LAST 30 DAYS: No - HPI Onset: This morning Quality of pain: No pain Severity: None Associated symptoms: Productive cough. denies: Chest pain, Fever, Headache, Nausea, Vomiting, Shortness of breath Exacerbated by: Denies Relieved by: Denies Similar symptoms previously: Yes Recently seen / treated by doctor: Yes - Related Data Allergies/Adverse Reactions: No Known Allergies Allergy (Verified 04/04/18 09:51) Past Medical History - General Information source: Patient - Social History Smoking Status: Current Every Day Smoker Chew tobacco use (# tins/day): No Frequency of alcohol use: None Drug Abuse: None Family History: Reviewed & Not Pertinent Patient has suicidal ideation: No Patient has homicidal ideation: No - Past Medical History Cardiac Medical History: Denies: Hx Coronary Artery Disease, Hx Heart Attack, Hx Hypertension Pulmonary Medical History: Reports: Hx COPD - advair Denies: Hx Asthma, Hx Bronchitis, Hx Pneumonia Neurological Medical History: Denies: Hx Cerebrovascular Accident, Hx Seizures Renal/ Medical History: Denies: Hx Peritoneal Dialysis Musculoskeltal Medical History: Denies Hx Arthritis Past Surgical History: Reports: Hx Abdominal Surgery - colon resection - 2015- [facility]. Denies: Hx Hysterectomy - Immunizations Hx Diphtheria, Pertussis, Tetanus Vaccination: - UNK Hx Pneumococcal Vaccination: 11/19/14 Review of Systems - Review of Systems Notes: REVIEW OF SYSTEMS: CONSTITUTIONAL : Denies fever, chills, or sweats. Patient discharged from the hospital yesterday. She admits to weakness. EENT: Denies visula changes, eye pain. Denies nasal or sinus congestion or discharge. Denies sore throat, oral lesions, difficulty swallowing. CARDIOVASCULAR: Denies chest pain. Denies palpitations or racing or irregular heart beat. Denies lower extremity edema. RESPIRATORY: Denies shortness of breath, difficulty breathing, or wheezing. GASTROINTESTINAL: Denies abdominal pain or distention. Denies nausea, vomiting , or diarrhea. Denies blood in vomitus, stools, or per rectum. Denies black, tarry stools. Denies constipation. GENITOURINARY: Denies difficulty urinating, painful urination, burning, frequency, blood in urine, or vaginal discharge. MUSCULOSKELETAL: Denies back or neck pain or stiffness. Denies joint pain or swelling. SKIN: Denies rash, lesions or sores. HEMATOLOGIC : Denies easy bruising or bleeding. LYMPHATIC: Denies swollen, enlarged glands. NEUROLOGICAL: Denies confusion or altered mental status. Denies passing out or loss of consciousness. Denies dizziness or lightheadedness. Denies headache. Denies weakness or paralysis or loss of use of either side. Denies problems with gait or speech. Denies sensory loss, numbness, or tingling. Denies seizures. PSYCHIATRIC: Denies anxiety or stress. Denies depression, suicidal ideation, or homicidal ideation. Physical Exam - Vital signs Vitals: Temp Pulse Resp BP Pulse Ox 98.6 F 74 20 141/58 H 92 04/04/18 10:12 04/04/18 10:12 04/04/18 10:12 04/04/18 10:12 04/04/18 10:12 Interpretation: Normal, Hypertensive. No: Febrile Notes: PHYSICAL EXAMINATION: GENERAL: Well-appearing, well-nourished and in no acute distress. HEAD: Atraumatic, normocephalic. EYES: Pupils equal round and reactive to light, extraocular movements intact, conjunctiva are normal. ENT: Nares patent, oropharynx clear without exudates. Moist mucous membranes. NECK: Normal range of motion, supple without lymphadenopathy LUNGS: Breath sounds clear to auscultation bilaterally and equal. No wheezes rales or rhonchi. HEART: Regular rate and rhythm without murmurs ABDOMEN: Soft, nontender, nondistended abdomen. No guarding, no rebound. No masses appreciated. Female : deferred Musculoskeletal: Normal range of motion, no pitting or edema. No cyanosis. NEUROLOGICAL: Cranial nerves grossly intact. Normal speech, normal gait. Normal sensory, motor exams PSYCH: Anxious, tearful SKIN: Warm, Dry, normal turgor, no rashes or lesions noted. Course - Re-evaluation Re-evalutation: Chest X-Ray 04/04/18 11:14 IMPRESSION: Minimal interval improvement as noted above 04/04/18 15:57 Ms. Spicer is a 67-year-old female that presents with concern for coughing up blood. Patient was just discharged yesterday after found to have aspiration pneumonia. Patient was discharged with Levaquin. She states this morning she coughed and was concerned because she believed there was blood streaked in her sputum. This occurred once. The patient did show me the tissue with the sputum in it and I saw no bright red blood or clots. There was a small amount of sputum with minimal discoloration at best. Patient had no further episodes since this morning. He denies any chest pain, shortness of breath. Patient was seen by myself upon arrival. Vital signs were reviewed. Patient is afebrile , normotensive and not hypoxic. Patient does not appear toxic or dehydrated. They are in no acute distress. Previous medical records and nursing notes reviewed. I Did speak to the patient's primary care physician and explained why the patient was here. He asked me to reassure her and tell her that his office would reach out to her and schedule her for an earlier appointment. I did explain to the patient that her chest x-ray did show minimal improvement in her pneumonia. Patient provided the opportunity to ask questions, and express concerns. Discharge instructions discussed. Patient is agreeable with discharge home. Return indications explained and discussed with the patient who displays understanding. Patient encouraged to return to the emergency department immediately with any concerns. 04/04/18 16:03 - Vital Signs Vital signs: Temp Pulse Resp BP Pulse Ox 97.5 F 73 18 146/56 H 93 04/04/18 12:40 04/04/18 12:40 04/04/18 12:40 04/04/18 12:40 04/04/18 12:40 - Diagnostic Test Radiology reviewed: Image reviewed, Reports reviewed Discharge - Discharge Clinical Impression: Feared complaint without diagnosis Aspiration pneumonia Qualifiers: Aspiration pneumonia type: unspecified Laterality: left Lung location: lower lobe of lung Qualified Code(s): J69.0 - Pneumonitis due to inhalation of food and vomit Condition: Good Disposition: HOME, SELF-CARE Instructions: Hemoptysis ([facility]), Pneumonia ([facility]) Additional Instructions: Please keep your upcoming appointment with Dr. Goldberg Follow up with your physician tomorrow for further care or return to the ED IMMEDIATELY if symptoms worsen or new concerns occur. If you cannot afford to follow up with your primary care physician a list of low cost clinics have been provided at the end of your discharge papers as well. Forms: Elevated Blood Pressure Referrals: GLENDY JOY MD [Primary Care Provider] - Follow up as needed
--- NOTE | 2018-04-04 12:10 | RADIOLOGY REPORT (SQ) ---
EXAM DESCRIPTION: CHEST 2 VIEWS COMPLETED DATE/TIME: 04/04/2018 11:22 am REASON FOR STUDY: coughing up blood COMPARISON: 04/02/2018 EXAM PARAMETERS: NUMBER OF VIEWS: two views TECHNIQUE: Digital Frontal and Lateral radiographic views of the chest acquired. RADIATION DOSE: NA LIMITATIONS: none FINDINGS: LUNGS AND PLEURA: The previously described lingular and left lower lobe airspace disease s hows minimal interval improvement with decreasing confluence. Fairly extensive residual changes are identified. On the current study there is some blunting of the left costophrenic angle suggesting a tiny left pleural effusion. The right lung remains clear MEDIASTINUM AND HILAR STRUCTURES: No masses or contour abnormalities. HEART AND VASCULAR STRUCTURES: Heart normal size. No evidence for failure. BONES: No acute findings. HARDWARE: None in the chest. OTHER: No other significant finding. IMPRESSION: Minimal interval improvement as noted above TECHNICAL DOCUMENTATION: JOB ID: [id number] [employer]- All Rights Reserved Reading location - IP/workstation name: [email or web address]
[2018-04-04 12:42] VITALS: BP 146/56
== END 2018-04-04 12:42 | disposition home or self-care (01) ==
LOC: ER 09:49
DX: J69.0 Pneumonitis due to inhalation of food and vomit (principal); J44.9 Chronic obstructive pulmonary disease, unspecified; F41.9 Anxiety disorder, unspecified; F17.200 Nicotine dependence, unspecified, uncomplicated
CPT/HCPCS: 71046; 99283

== ENCOUNTER → 2018-10-22 | Outpatient (CLI) | payer MEDICARE, MEDICAID ==
--- NOTE | 2018-10-22 08:59 | WOMENS IMAGING REPORT ---
EXAM DESCRIPTION: BONE DENSITY HIP/SPINE COMPLETED DATE/TIME: 10/22/2018 8:43 am REASON FOR STUDY: BONE DENSITY TEST/N95.8 Z12.31 ENCNTR SCREEN MAMMOGRAM FOR MALIGNANT NEOPLASM OF DANIELA N95.8 OTHER SPECIFIED MENOPAUSAL AND PERIMENOPAUSAL DISORDER COMPARISON: None. TECHNIQUE: Dual-Energy X-ray Absorptiometry (DEXA) of the AP Spine and Hip. LIMITATIONS: None. FINDINGS: LUMBAR SPINE: The bone mineral density (BMD) measured from L1-L4 in the AP projection correlates with a T-score of -1.1, which is osteopenia as defined by the World Health Organization. BMD change versus baseline(1. 4%) HIP: The bone mineral density (BMD) measured in the path hip correlates with a T-score of -1.5, which is o steopenia as defined by the World Health Organization. BMD change versus baseline(-7.4%) IMPRESSION: 1. LUMBAR SPINE: OSTEOPENIA. 2. HIP: OSTEOPENIA. COMMENT: The World Health Organization defines low BMD as follows: T-score: Normal: Greater than -1.0 Osteopenia: Between -1.0 and -2.5 Osteoporosis: Less than -2.5 without fractures Established osteoporosis: Less than -2.5 with fractures In general, you may wish to consider: Diagnosis Treatment Follow-up DEXA Normal BMD Prevention 2-3 years Osteopenia Prevention/Therapy 1-2 years Osteoporosis Therapy Yearly TECHNICAL DOCUMENTATION: JOB ID: [id number] [employer]- All Rights Reserved Reading location - IP/workstation name: [email or web address]
--- NOTE | 2018-10-22 09:19 | WOMENS IMAGING REPORT ---
EXAM DESCRIPTION: BILAT SCREENING MAMMO W/CAD COMPLETED DATE/TIME: 10/22/2018 8:42 am REASON FOR STUDY: BILATERAL SCREENING MAMMO /Z12.31 Z12.31 ENCNTR SCREEN MAMMOGRAM FOR MALIGNANT NE OPLASM OF DANIELA N95.8 OTHER SPECIFIED MENOPAUSAL AND PERIMENOPAUSAL DISORDER COMPARISON: Multiple since 2008 TECHNIQUE: Standard craniocaudal and mediolateral oblique views of each breast recorded using digita l acquisition. LIMITATIONS: None. FINDINGS: No masses, calcifications or architectural distortion. No areas of suspicion. Read with the assistance of CAD. [facility] - R2 Cenova Version 1.3 .[facility] - R2 Cenova Version 1.3 .[facility] - R2 Cenova Version 2.4 .[facility] [place] - R2 Cenova Version 2.4 .[facility] - R2 Director Style Version 9.2 IMPRESSION: NORMAL MAMMOGRAM. BIRADS 1. BREAST DENSITY: b. There are scattered areas of fibroglandular density. BIRAD: 1 NEGATIVE RECOMMENDATION: ROUTINE SCREENING Please continue yearly bilateral screening mammography/tomosynthesis in September 2019 COMMENT: The patient has been notified of the results by letter per [place] requirements. Additional no tification policies are in place for contacting patient with suspicious or incomplete findings. Quality ID #[id number]: The [employer] [employer] recommends an annual screening mammogram for women aged 40 years or over. This facility utilizes a reminder system to ensure that all patients receive reminder letters, and/or direct phone calls for appointments. This includes reminders for routine scr eening mammograms, diagnostic mammograms, or other Breast Imaging Interventions when appropriate. Th is patient will be placed in the appropriate reminder system. The [employer] [place] [employer] (ACR) has developed recommendations for screening MRI of the breast s in certain patient populations, to be used in conjunction with mammography. Breast MRI surveillanc e may be appropriate for women with more than 20% lifetime risk of developing breast cancer as deter mined by genetic testing, significant family history of the disease, or history of mantle radiation f or Hodgkins Disease. ACR Practice Guidelines 2008. TECHNICAL DOCUMENTATION: FINDING NUMBER: (1) ASSESSMENT: (1) JOB ID: [id number] [employer]- All Rights Reserved Reading location - IP/workstation name: [email or web address] [id number]
== END ==
LOC: WI 07:58
PROVIDERS: ATTEND Family Medicine
DX: Z12.31 Encounter for screening mammogram for malignant neoplasm of breast (principal); N95.8 Other specified menopausal and perimenopausal disorders; M85.88 Other specified disorders of bone density and structure, other site
CPT/HCPCS: 77067; 77080

== ENCOUNTER 2018-10-31 07:09 | Inpatient (IN) | payer MEDICARE, MEDICAID ==
--- NOTE | 2018-10-24 09:32 | EKG REPORT ---
SEVERITY:- NORMAL ECG - SINUS RHYTHM : Confirmed by: Madina Vazquez 24-Oct-2018 09:31:41
[2018-10-24 10:05] LABS: HEMATOCRIT 34.3 % (36.0-47.0); HEMOGLOBIN 11.6 g/dL (12.0-15.5); MEAN CORPUSCULAR HEMOGLOBIN 28.9 pg (27.0-33.4); MEAN CORPUSCULAR HGB CONC 33.7 g/dL (32.0-36.0); MEAN CORPUSCULAR VOLUME 86 fl (80-97); PLATELET COUNT 334 10^3/uL (150-450); RED BLOOD COUNT 3.99 10^6/uL (3.72-5.28); RED CELL DISTRIBUTION WIDTH 16.5 % (11.5-14.0); WHITE BLOOD COUNT 5.5 10^3/uL (4.0-10.5)
--- NOTE | 2018-10-24 10:18 | RADIOLOGY REPORT (SQ) ---
EXAM DESCRIPTION: CHEST PA/LATERAL COMPLETED DATE/TIME: 10/24/2018 9:36 am REASON FOR STUDY: PRE-OP,SOB COMPARISON: March 2018 EXAM PARAMETERS: NUMBER OF VIEWS: two views TECHNIQUE: Digital Frontal and Lateral radiographic views of the chest acquired. RADIATION DOSE: NA LIMITATIONS: none FINDINGS: LUNGS AND PLEURA: No opacities, masses or pneumothorax. No pleural effusion. There is juan dence for obstructive lung disease. MEDIASTINUM AND HILAR STRUCTURES: No masses or contour abnormalities. HEART AND VASCULAR STRUCTURES: Heart normal size. No evidence for failure. BONES: No acute findings. HARDWARE: None in the chest. OTHER: No other significant finding. IMPRESSION: Findings consistent with obstructive lung disease. No acute changes are identified. TECHNICAL DOCUMENTATION: JOB ID: [id number] [employer]- All Rights Reserved Reading location - IP/workstation name: [email or web address]
[2018-10-24 10:21] LABS: ALANINE AMINOTRANSFERASE 22 U/L (9-52); ALBUMIN 4.4 g/dL (3.5-5.0); ALKALINE PHOSPHATASE 83 U/L (38-126); ANION GAP 10 (5-19); ASPARTATE AMINO TRANSFERASE 21 U/L (14-36); BILIRUBIN,DIRECT 0.2 mg/dL (0.0-0.4); BILIRUBIN,TOTAL 0.3 mg/dL (0.2-1.3); BLOOD UREA NITROGEN 10 mg/dL (7-20); CALCIUM 9.9 mg/dL (8.4-10.2); CARBON DIOXIDE 31 mmol/L (22-30); CHLORIDE 104 mmol/L (98-107); GLUCOSE 98 mg/dL (75-110); POTASSIUM 4.7 mmol/L (3.6-5.0); SODIUM 144.8 mmol/L (137-145); TOTAL PROTEIN 7.1 g/dL (6.3-8.2)
[~2018-10-31 07:09] MED LIST changes: +BUPIVACAINE HCL 0.5 % INJ/PF 30 ML SDV ONE; +CEFOXITIN SODIUM 2 GM in DEXTROSE 5%-WATER 100 ML IV PRN; +IBUPROFEN 800 MG in NORMAL SALINE 250 ML IV PRN; -MIDAZOLAM 2 MG/2 ML INJ ONE; -PROPOFOL INJ 200 MG/20 ML VIAL IV ONE
[2018-10-31] MEDS ORDERED: EPHEDRINE SULFATE INJ 50 MG/1 ML AMPULE ONE (09:15)
[2018-10-31] MEDS ORDERED: MIDAZOLAM 2 MG/2 ML INJ ONE (09:15)
[2018-10-31] MEDS ORDERED: HYDROMORPHONE HCL INJ/PF 2 MG/ML AMPULE ONE (09:15)
[2018-10-31] MEDS ORDERED: FENTANYL CITRATE INJ/PF 250 MCG/5 ML AMPULE ONE ×2 (09:15→10:00)
[2018-10-31] MEDS ORDERED: ACETAMINOPHEN 1,000 MG/100 ML RTUPB IV ONE (09:16)
[2018-10-31] MEDS ORDERED: PROPOFOL INJ 200 MG/20 ML VIAL IV ONE (09:16)
[2018-10-31] MEDS ORDERED: LIDOCAINE 2% JELLY 30 ML TUBE ONE (09:56)
[2018-10-31] MEDS ORDERED: PROMETHAZINE HCL INJ 25 MG/1 ML VIAL IV PRN ×2 (12:44)
[2018-10-31] MEDS ORDERED: DIPHENHYDRAMINE HCL 50 MG/ML VIAL IV PRN (12:44)
[2018-10-31] MEDS ORDERED: OXYCODONE-ACETAMINOPHEN 5-325 MG TABLET PO PRN ×2 (12:44)
[2018-10-31] MEDS ORDERED: FENTANYL CITRATE INJ/PF 100 MCG/2 ML AMPUL IV PRN ×3 (12:44)
[2018-10-31] MEDS ORDERED: MEPERIDINE HCL/PF INJ 25 MG/1 ML DISP.SYRIN IV PRN (12:44)
[2018-10-31] MEDS ORDERED: MORPHINE SULFATE 10 MG/ML INJ IV PRN (12:44)
[2018-10-31] MEDS ORDERED: ROCURONIUM BROMIDE INJ 50 MG/5 ML VIAL IV ONE (13:23)
[2018-10-31] MEDS ORDERED: NEOSTIGMINE METHYLSULFATE 10 MG/10 ML VIAL ONE (13:23)
[2018-10-31] MEDS ORDERED: ONDANSETRON HCL INJ/PF 4 MG/2 ML SDV ONE ×2 (13:23→17:27)
[2018-10-31] MEDS ORDERED: GLYCOPYRROLATE 1 MG/5 ML SYRINGE ONE (13:23)
[2018-10-31] MEDS ORDERED: BUPIVACAINE HCL 0.5 % INJ/PF 30 ML SDV ONE (16:07)
[2018-10-31 17:09] LABS: HEMATOCRIT 31.1 % (36.0-47.0); HEMOGLOBIN 10.3 g/dL (12.0-15.5); MEAN CORPUSCULAR HEMOGLOBIN 28.7 pg (27.0-33.4); MEAN CORPUSCULAR HGB CONC 33.3 g/dL (32.0-36.0); MEAN CORPUSCULAR VOLUME 86 fl (80-97); PLATELET COUNT 276 10^3/uL (150-450); RED BLOOD COUNT 3.61 10^6/uL (3.72-5.28); RED CELL DISTRIBUTION WIDTH 16.2 % (11.5-14.0); WHITE BLOOD COUNT 5.6 10^3/uL (4.0-10.5)
[2018-10-31 17:16] LABS: INTERNATIONAL RATION (INR) 0.92; PROTHROMBIN TIME 12.9 SEC (11.4-15.4)
[2018-10-31 17:17] LABS: PARTIAL THROMBOPLASTIN TIME 24.7 SEC (23.5-35.8)
[2018-10-31 17:24] LABS: ABSOLUTE LYMPHOCYTES# (MANUAL) 0.2 10^3/uL (0.5-4.7); ABSOLUTE MONOCYTES # (MANUAL) 0.5 10^3/uL (0.1-1.4); ABSOLUTE NEUTROPHILS# (MANUAL) 4.9 10^3/uL (1.7-8.2); ANISOCYTOSIS 1+; BASOPHILS % (MANUAL) 0 % (0-2); EOSINOPHILS % (MANUAL) 0 % (0-6); LYMPHOCYTES % (MANUAL) 4 % (13-45); MONOCYTES % (MANUAL) 9 % (3-13); PLATELET COMMENT ADEQUATE; POIKILOCYTOSIS SLIGHT; SEGMENTED NEUTROPHILS % (MAN) 87 % (42-78); TOTAL CELLS COUNTED 100; TOXIC GRANULATION SLIGHT
[2018-10-31] MEDS ORDERED: SCOPOLAMINE HYDROBROMIDE 1.5 MG PATCH.TD72 ONE (17:27)
[2018-10-31 17:36] LABS: ANION GAP 9 (5-19); BLOOD UREA NITROGEN 8 mg/dL (7-20); CALCIUM 8.8 mg/dL (8.4-10.2); CARBON DIOXIDE 26 mmol/L (22-30); CHLORIDE 105 mmol/L (98-107); GLUCOSE 148 mg/dL (75-110); POTASSIUM 4.2 mmol/L (3.6-5.0); SODIUM 140.1 mmol/L (137-145)
[2018-10-31] MEDS ORDERED: FENTANYL CITRATE INJ/PF 100 MCG/2 ML AMPUL ONE (17:37)
[2018-10-31] MEDS: CEFOXITIN SODIUM 2 GM in DEXTROSE 5%-WATER 100 ML IV SCH (19:19)
[2018-10-31] MEDS: DEXTROSE 5%-LACTATED RINGERS 1,000 ML IV PRN (19:21)
[2018-10-31] MEDS: MORPHINE SULFATE 10 MG/ML INJ IV PRN (20:43)
[2018-10-31] MEDS: ONDANSETRON HCL INJ/PF 4 MG/2 ML SDV IV PRN (21:30)
[2018-10-31] MEDS: PROMETHAZINE HCL INJ 25 MG/1 ML VIAL IV PRN (23:06)
[2018-11-01] MEDS: MORPHINE SULFATE 10 MG/ML INJ IV PRN ×2 (01:02→05:13)
[2018-11-01] MEDS: ONDANSETRON HCL INJ/PF 4 MG/2 ML SDV IV PRN (01:38)
[2018-11-01 04:48] LABS: HEMATOCRIT 28.2 % (36.0-47.0); HEMOGLOBIN 9.6 g/dL (12.0-15.5); MEAN CORPUSCULAR HEMOGLOBIN 29.2 pg (27.0-33.4); MEAN CORPUSCULAR HGB CONC 33.9 g/dL (32.0-36.0); MEAN CORPUSCULAR VOLUME 86 fl (80-97); PLATELET COUNT 220 10^3/uL (150-450); RED BLOOD COUNT 3.28 10^6/uL (3.72-5.28); WHITE BLOOD COUNT 10.7 10^3/uL (4.0-10.5)
[2018-11-01 05:04] LABS: ALANINE AMINOTRANSFERASE 21 U/L (9-52); ALBUMIN 3.1 g/dL (3.5-5.0); ALKALINE PHOSPHATASE 47 U/L (38-126); ANION GAP 10 (5-19); ASPARTATE AMINO TRANSFERASE 21 U/L (14-36); BILIRUBIN,DIRECT 0.1 mg/dL (0.0-0.4); BILIRUBIN,TOTAL 0.3 mg/dL (0.2-1.3); BLOOD UREA NITROGEN 8 mg/dL (7-20); CALCIUM 8.7 mg/dL (8.4-10.2); CARBON DIOXIDE 27 mmol/L (22-30); CHLORIDE 102 mmol/L (98-107); GLUCOSE 157 mg/dL (75-110); POTASSIUM 3.9 mmol/L (3.6-5.0); TOTAL PROTEIN 5.2 g/dL (6.3-8.2)
[2018-11-01 05:08] LABS: ABSOLUTE LYMPHOCYTES# (MANUAL) 0.4 10^3/uL (0.5-4.7); ABSOLUTE MONOCYTES # (MANUAL) 0.1 10^3/uL (0.1-1.4); ABSOLUTE NEUTROPHILS# (MANUAL) 10.2 10^3/uL (1.7-8.2); BAND NEUTROPHILS % (MANUAL) 6 % (3-5); BASOPHILS % (MANUAL) 0 % (0-2); EOSINOPHILS % (MANUAL) 0 % (0-6); LYMPHOCYTES % (MANUAL) 4 % (13-45); MONOCYTES % (MANUAL) 1 % (3-13); SEGMENTED NEUTROPHILS % (MAN) 89 % (42-78); TOTAL CELLS COUNTED 100
[2018-11-01 05:11] LABS: ANISOCYTOSIS 1+; HYPOCHROMASIA 2+; PLATELET COMMENT ADEQUATE
[2018-11-01] MEDS: CEFOXITIN SODIUM 2 GM in DEXTROSE 5%-WATER 100 ML IV SCH (05:14)
[2018-11-01] MEDS: DEXTROSE 5%-LACTATED RINGERS 1,000 ML IV PRN (06:33)
[2018-11-01] MEDS: PROMETHAZINE HCL INJ 25 MG/1 ML VIAL IV PRN ×2 (06:44→21:49)
--- NOTE | 2018-11-01 10:25 | PDOC PROGRESS REPORT ---
Subjective Reason For Visit: S/P COLON RESECTION Physical Exam Vital Signs: Temp Pulse Resp BP Pulse Ox 98.5 F 77 17 130/55 H 98 11/01/18 08:04 11/01/18 08:04 11/01/18 08:04 11/01/18 08:04 11/01/18 08:04 Intake & Output 10/31/18 11/01/18 11/02/18 06:59 06:59 06:59 Intake Total 6000 Output Total 2705 Balance 3295 Weight 134.5 kg Results Laboratory Results: 11/01/18 03:54 11/01/18 03:54 10/31/18 10/31/18 11/01/18 16:55 16:55 03:54 WBC 5.6 10.7 H RBC 3.61 L 3.28 L Hgb 10.3 L 9.6 L Hct 31.1 L 28.2 L MCV 86 86 MCH 28.7 29.2 MCHC 33.3 33.9 RDW 16.2 H 16.0 H Plt Count 276 220 Seg Neutrophils % Not Reportable Not Reportable Lymphocytes % Not Reportable Not Reportable Monocytes % Not Reportable Not Reportable Eosinophils % Not Reportable Not Reportable Basophils % Not Reportable Not Reportable Absolute Neutrophils Not Reportable Not Reportable Absolute Lymphocytes Not Reportable Not Reportable Absolute Monocytes Not Reportable Not Reportable Absolute Eosinophils Not Reportable Not Reportable Absolute Basophils Not Reportable Not Reportable Sodium 140.1 Potassium 4.2 Chloride 105 Carbon Dioxide 26 Anion Gap 9 BUN 8 Creatinine 0.82 Est GFR ( Amer) > 60 Est GFR (Non-Af Amer) > 60 Glucose 148 H Calcium 8.8 Total Bilirubin AST ALT Alkaline Phosphatase Total Protein Albumin 11/01/18 03:54 WBC RBC Hgb Hct MCV MCH MCHC RDW Plt Count Seg Neutrophils % Lymphocytes % Monocytes % Eosinophils % Basophils % Absolute Neutrophils Absolute Lymphocytes Absolute Monocytes Absolute Eosinophils Absolute Basophils Sodium 139.0 Potassium 3.9 Chloride 102 Carbon Dioxide 27 Anion Gap 10 BUN 8 Creatinine 0.61 Est GFR ( Amer) > 60 Est GFR (Non-Af Amer) > 60 Glucose 157 H Calcium 8.7 Total Bilirubin 0.3 AST 21 ALT 21 Alkaline Phosphatase 47 Total Protein 5.2 L Albumin 3.1 L Impressions: Chest X-Ray 10/24/18 09:22 IMPRESSION: Findings consistent with obstructive lung disease. No acute changes are identified. Assessment & Plan - Diagnosis (1) Multiple benign polyps of large intestine Is this a current diagnosis for this admission?: Yes - Plan Summary Plan Summary: Is a 68-year-old female with multiple colonic polyps and a history of colon cancer. The patient underwent completion (near total abdominal) laparoscopic colectomy. Patient is doing reasonably well today. She does report some nausea , and back pain. Her nausea is worse with narcotic medications. I will change her medications, in hopes that her nausea subsides. Out of bed today. MARGAUX Henson. Repeat labs tomorrow. Continue full liquids.
[2018-11-01] MEDS: HYDROMORPHONE HCL INJ/PF 2 MG/ML AMPULE IV PRN ×3 (10:29→21:48)
[2018-11-01] MEDS: LANSOPRAZOLE 30 MG TAB.RAP.DR PO SCH (16:55)
[2018-11-01] MEDS: KETOROLAC TROMETHAMINE INJ/PF 30 MG/1 ML SDV IV PRN (18:10)
[2018-11-01] MEDS: FLUTICASONE/SALMETEROL DISKUS 250-50 MCG/DOSE IH SCH (21:48)
[2018-11-01] MEDS: ACETAMINOPHEN 1,000 MG/100 ML RTUPB IV SCH (21:48)
[2018-11-01] MEDS ORDERED: (PENDING PHARMACY ID) (Pravastatin Sodium [Pravastatin Sodium] 20 MG) PO SCH (22:00)
[2018-11-02] MEDS: ACETAMINOPHEN 1,000 MG/100 ML RTUPB IV SCH ×3 (00:33→12:25)
[2018-11-02] MEDS: KETOROLAC TROMETHAMINE INJ/PF 30 MG/1 ML SDV IV PRN (04:02)
[2018-11-02] MEDS: ONDANSETRON HCL INJ/PF 4 MG/2 ML SDV IV PRN (04:03)
[2018-11-02] MEDS: LANSOPRAZOLE 30 MG TAB.RAP.DR PO SCH ×2 (05:23→16:11)
[2018-11-02] MEDS: DEXTROSE 5%-LACTATED RINGERS 1,000 ML IV PRN (05:28)
[2018-11-02 05:29] LABS: ABSOLUTE LYMPHOCYTES (AUTO) 0.6 10^3/uL (0.5-4.7); ABSOLUTE MONOCYTES (AUTO) 0.7 10^3/uL (0.1-1.4); ABSOLUTE NEUT (AUTO) 5.3 10^3/uL (1.7-8.2); BASOPHILS % (AUTO) 0.1 % (0-2); EOSINOPHILS % (AUTO) 0.4 % (0-6); HEMATOCRIT 26.1 % (36.0-47.0); HEMOGLOBIN 8.8 g/dL (12.0-15.5); LYMPHOCYTES % (AUTO) 9.4 % (13-45); MEAN CORPUSCULAR HEMOGLOBIN 29.1 pg (27.0-33.4); MEAN CORPUSCULAR HGB CONC 33.9 g/dL (32.0-36.0); MEAN CORPUSCULAR VOLUME 86 fl (80-97); MONOCYTES % (AUTO) 10.6 % (3-13); PLATELET COUNT 219 10^3/uL (150-450); RED BLOOD COUNT 3.04 10^6/uL (3.72-5.28); RED CELL DISTRIBUTION WIDTH 15.9 % (11.5-14.0); SEGMENTED NEUTROPHILS % (AUTO) 79.5 % (42-78); TOTAL CELLS COUNTED % (AUTO) 100 %; WHITE BLOOD COUNT 6.7 10^3/uL (4.0-10.5)
[2018-11-02 05:56] LABS: ALANINE AMINOTRANSFERASE 22 U/L (9-52); ALBUMIN 2.6 g/dL (3.5-5.0); ALKALINE PHOSPHATASE 49 U/L (38-126); ASPARTATE AMINO TRANSFERASE 22 U/L (14-36); BILIRUBIN,DIRECT 0.2 mg/dL (0.0-0.4); BILIRUBIN,TOTAL 0.4 mg/dL (0.2-1.3); BLOOD UREA NITROGEN 9 mg/dL (7-20); CALCIUM 8.5 mg/dL (8.4-10.2); GLUCOSE 98 mg/dL (75-110); POTASSIUM 3.6 mmol/L (3.6-5.0); TOTAL PROTEIN 4.8 g/dL (6.3-8.2)
[2018-11-02 06:01] LABS: CARBON DIOXIDE 31 mmol/L (22-30); CHLORIDE 101 mmol/L (98-107)
[2018-11-02 06:08] LABS: ANION GAP 3 (5-19); SODIUM 135.2 mmol/L (137-145)
[2018-11-02] MEDS ORDERED: ERGOCALCIFEROL (VITAMIN D2) 50000 UNIT (1.25 MG) CAPSULE PO SCH (08:00)
[2018-11-02] MEDS ORDERED: (PENDING PHARMACY ID) (Cetirizine Hcl [Zyrtec] 10 MG) PO SCH (10:00)
[2018-11-02] MEDS ORDERED: (PENDING PHARMACY ID) (Vitamin B Complex [Vitamin B Complex] 1 CAP) PO SCH (10:00)
[2018-11-02] MEDS: FLUTICASONE/SALMETEROL DISKUS 250-50 MCG/DOSE IH SCH ×2 (10:13→22:10)
[2018-11-02] MEDS: PROMETHAZINE HCL INJ 25 MG/1 ML VIAL IV PRN (10:14)
[2018-11-02] MEDS: CETIRIZINE 10 MG TABLET PO SCH (10:15)
[2018-11-02] MEDS ORDERED: KETOROLAC TROMETHAMINE INJ/PF 30 MG/1 ML SDV IV PRN (14:06)
--- NOTE | 2018-11-02 14:11 | PDOC PROGRESS REPORT ---
Subjective Progress Note for:: 11/02/18 Reason For Visit: S/P COLON RESECTION Physical Exam Vital Signs: Temp Pulse Resp BP Pulse Ox 98.8 F 83 20 149/59 H 95 11/02/18 13:20 11/02/18 13:20 11/02/18 13:20 11/02/18 13:20 11/02/18 13:20 Intake & Output 11/01/18 11/02/18 11/03/18 06:59 06:59 06:59 Intake Total 6000 1968 100 Output Total 2705 2280 Balance 3295 -312 100 Weight 134.5 kg Results Laboratory Results: 11/02/18 03:54 11/02/18 03:54 11/02/18 11/02/18 03:54 03:54 WBC 6.7 RBC 3.04 L Hgb 8.8 L Hct 26.1 L MCV 86 MCH 29.1 MCHC 33.9 RDW 15.9 H Plt Count 219 Seg Neutrophils % 79.5 H Lymphocytes % 9.4 L Monocytes % 10.6 Eosinophils % 0.4 Basophils % 0.1 Absolute Neutrophils 5.3 Absolute Lymphocytes 0.6 Absolute Monocytes 0.7 Absolute Eosinophils 0.0 Absolute Basophils 0.0 Sodium 135.2 L Potassium 3.6 Chloride 101 Carbon Dioxide 31 H Anion Gap 3 L BUN 9 Creatinine 0.76 Est GFR ( Amer) > 60 Est GFR (Non-Af Amer) > 60 Glucose 98 Calcium 8.5 Total Bilirubin 0.4 AST 22 ALT 22 Alkaline Phosphatase 49 Total Protein 4.8 L Albumin 2.6 L Impressions: Chest X-Ray 10/24/18 09:22 IMPRESSION: Findings consistent with obstructive lung disease. No acute changes are identified. Assessment & Plan - Diagnosis (1) Multiple benign polyps of large intestine Is this a current diagnosis for this admission?: Yes - Plan Summary Plan Summary: 68-year-old female status post laparoscopic total abdominal colectomy with ileorectal anastomosis. The patient had several liquid bowel movements this morning. She still has occasional nausea, related to pain medication administration. I will discontinue the Dilaudid. The patient is receiving Toradol and Tylenol. I will add Ultram as needed. Maintain Henson due to urinary retention yesterday. Out of bed. Discontinue IV fluids. Add Lomotil.
--- NOTE | 2018-11-02 15:49 | Operative Report ---
Nonrecallable Operative Report DATE OF SURGERY: 10/31/18 PREOPERATIVE DIAGNOSIS: 1. History of colon cancer. 2. Multiple colon polyps removed every year for the last 4 years. 3. High risk for the development of recurrent colon cancer. POSTOPERATIVE DIAGNOSIS: Same as above OPERATION: 1. Extensive laparoscopic lysis of adhesions. 2. Laparoscopic total abdominal colectomy with 25 mm stapled EEA end-to-side ileorectal anastomosis SURGEON: BEVERLY SWEENEY ANESTHESIA: GA TISSUE REMOVED OR ALTERED: Total abdominal colectomy COMPLICATIONS: None apparent ESTIMATED BLOOD LOSS: 200 cc PROCEDURE: Drains/implants: None. Procedure in detail: After informed consent was obtained, the patient was brought to the operating room and laid in the supine position. The area of the abdomen was prepped and draped in a normal sterile fashion. A 15 blade scalpel was used to create a left upper quadrant incision. The camera and 5 mm trocar were then introduced into the abdomen using the Optiview technique. Gas insufflation was attached, and pneumoperitoneum was achieved. Next a 12 mm left lower quadrant trocar was placed as well as a right lower quadrant 12 mm trocar. Patient had a history of a large hernia mesh placed in the upper midline abdominal wall. There was a large amount of adhesive disease associated with it. Using the previously placed trochars, lysis of adhesions was undertaken laparoscopically for more than 1 hour. Once the anterior abdominal wall was completely freed, a right upper quadrant 5 mm trocar was placed. Dissection was begun at the right colon remnant. The patient had undergone a previous right colon resection. Ileocolic anastomosis was easily identified. The omentum was elevated away from the anastomosis, anteriorly. The omentum was freed from the right colon remnant, across the transverse colon and displaced superiorly. Next, the splenic flexure was freed. The transverse colon was retracted inferiorly and the splenocolic ligament was divided using the harmonic scalpel. Once adequate mobilization was performed here, attention was turned to isolation and division of the rectum. Mesentery was opened using the harmonic scalpel at approximately the sacral promontory. In a medial to lateral fashion the mesentery was elevated away from the retroperitoneum. The ureter was identified and spared along its course. Next the 60 mm [place] stapling device was used to divide the superior rectal artery. Once this was completed the left colon was freed from the white line of Toldt, again using the harmonic scalpel. The mobilization continued inferiorly immediately adjacent to the sigmoid colon, avoiding the ureter during the maneuver. Once the rectum was reached, the 60 mm [place] stapling device was used to divide the proximal rectum. Next, the harmonic scalpel was used to divide the mesentery, immediately adjacent to the colon wall. This was done from the left colon up to the transverse colon, ending with the ileocolic anastomosis. Once this was completed, attention was turned to extraction of the specimen. A lower midline incision was created approximately 5-6 cm in length. The Christos wound retractor was placed into the patient and tightened appropriately. The colon was then removed from the patient. The ileocolic anastomosis was identified and divided with the [place] 60 stapler. Next, a 25 mm EEA sizer was inserted up the rectum. It was found to terminate at the distal rectum, seen intra-abdominally. Once this was confirmed, the 25 EEA stapler was passed onto the field. The small bowel was opened and the 25 EEA anvil was placed into the small bowel. It was brought out through the antimesenteric portion of the small bowel. The small bowel was then closed using the [place] stapling device. Next, the EEA stapler was inserted up into the rectum. The spike was deployed through the previous rectal staple line. The orange band was identified. The anvil was attached to the EEA stapler. The stapler was then tightened, 15 seconds was allowed to elapse, and the stapler was fired according to counter checker recommendations. The stapler was then removed from the patient, and the anastomosis was tested. The abdomen was filled with sterile saline, and air was inserted into the rectum. No leakage of air from the anastomosis could be identified. Once this was confirmed pneumoperitoneum was again achieved. The abdomen was inspected. There was no active bleeding identified within the abdomen. The trochars were then removed, the Christos wound retractor was removed, and attention was turned to closure of the abdomen. The midline fascia was closed using #1 PDS suture in simple running fashion. The right and left lower quadrant 12 mm trochar site fascia were were closed using 0 Vicryl suture in [id number] fashion under direct vision. The overlying skin was closed using skin enrique. Dressings were placed, and the procedure was concluded. All sponge, instrument, and needle counts were correct x2. Condition: Stable.
[2018-11-02] MEDS: DIPHENOXYLATE HCL/ATROP SULF 2.5-0.025 MG TABLET PO SCH (17:58)
[2018-11-02] MEDS: TRAMADOL HCL 50 MG TABLET PO PRN ×2 (18:02→22:09)
[2018-11-03] MEDS: ONDANSETRON HCL INJ/PF 4 MG/2 ML SDV IV PRN (05:20)
[2018-11-03] MEDS: LANSOPRAZOLE 30 MG TAB.RAP.DR PO SCH (06:07)
[2018-11-03] MEDS: TRAMADOL HCL 50 MG TABLET PO PRN ×2 (07:53→12:04)
[2018-11-03] MEDS: DIPHENOXYLATE HCL/ATROP SULF 2.5-0.025 MG TABLET PO SCH (09:59)
[2018-11-03] MEDS ORDERED: ASPIRIN 81 MG TABLET, ENT COATED PO SCH (10:00)
[2018-11-03] MEDS: FLUTICASONE/SALMETEROL DISKUS 250-50 MCG/DOSE IH SCH (10:01)
[2018-11-03] MEDS: CETIRIZINE 10 MG TABLET PO SCH (10:01)
--- NOTE | 2018-11-03 10:42 | PDOC PROGRESS REPORT ---
Subjective Progress Note for:: 11/03/18 Subjective:: No complaints; tolerating p.o.; wants Henson catheter out; wants to go home. Reason For Visit: S/P COLON RESECTION Physical Exam Vital Signs: Temp Pulse Resp BP Pulse Ox 98.8 F 80 16 127/62 H 94 11/03/18 07:23 11/03/18 07:23 11/03/18 07:23 11/03/18 07:23 11/03/18 07:23 Intake & Output 11/02/18 11/03/18 11/04/18 06:59 06:59 06:59 Intake Total 1968 1566 Output Total 2280 3250 Balance -312 -5074 Weight 56.6 kg General appearance: PRESENT: no acute distress GI/Abdominal exam: PRESENT: other - All dressings removed; abdomen completely benign no peritoneal signs no rigidity incisions healing satisfactorily. Results Laboratory Results: 11/02/18 03:54 11/02/18 03:54 Impressions: Chest X-Ray 10/24/18 09:22 IMPRESSION: Findings consistent with obstructive lung disease. No acute changes are identified. Assessment & Plan - Diagnosis (1) Multiple benign polyps of large intestine Is this a current diagnosis for this admission?: Yes Plan: Patient is now 4 days status post completion colectomy, minimally invasive, doing well tolerating a diet with adequate pain control with p.o. medication Recommendations: 1. DC Henson 2. Anticipate discharge home later today if criteria met.
[2018-11-03 14:24] VITALS: BP 149/59
--- NOTE | 2018-11-04 08:42 | DISCHARGE SUMMARY E ---
Discharge Summary NAME: ALEX CAICEDO : 1950 AGE: 68Y ADMITTED: 10/31/2018 DISCHARGED: 11/03/2018 REASON FOR ADMISSION: MULTIPLE RESIDUAL COLON POLYPS. SUMMARY OF HOSPITALIZATION: The patient is a 68-year-old white female with previous history of right hemicolectomy for colon carcinoma who was brought into [facility] for laparoscopic completion colectomy. The procedure was performed by Dr. Ordoñez. She tolerated the operation well. Postoperatively she was started on diet postoperative day 1 and this was advanced and tolerated well. Her Henson catheter was removed and needed to be reinserted after 12 hours. Eventually she was up ambulating. Had adequate pain control and was able to void upon catheter removal. Her wounds showed evidence of appropriate healing. By the third postoperative day she was felt to receive maximal benefit from hospitalization and discharged home. FINAL DIAGNOSIS: Multiple residual colonic polyps status post completion laparoscopic hemicolectomy by Dr. Ordoñez. DISPOSITION: Patient was discharged home in the care of her family. Follow up with Dr. Ordoñez in the surgical clinic in approximately 2 weeks; she will take Tramadol p.r.n. pain. DICTATING PHYSICIAN: SONJA BURRIS M.D. [id number] PHY#: [id number] ID: [id number] JOB#: [id number] ACCT: [id number] cc:Price SIMS M.D. >
== END 2018-11-03 15:00 | disposition home or self-care (01) | DRG 331 ==
LOC: INOR 07:09 → 5 18:25
PROVIDERS: ADMIT Surgery; ATTEND Surgery
PROC: 0DNW4ZZ Release Peritoneum, Percutaneous Endoscopic Approach (ICD-10-PCS; 2018-10-31)
PROC: 0DTG4ZZ Resection of Left Large Intestine, Percutaneous Endoscopic Approach (ICD-10-PCS; principal; 2018-10-31 09:30)
DX: D12.6 Benign neoplasm of colon, unspecified (principal); K66.0 Peritoneal adhesions (postprocedural) (postinfection); Z85.038 Personal history of other malignant neoplasm of large intestine; Z90.49 Acquired absence of other specified parts of digestive tract; E55.9 Vitamin D deficiency, unspecified; K21.9 Gastro-esophageal reflux disease without esophagitis; J44.9 Chronic obstructive pulmonary disease, unspecified
CPT/HCPCS: 36415; 71046; 790; 80048; 80053; 85025; 85027; 85610; 85730; 86850; 86900; 86901; 88307; 93005; 93010; J0131; J0694; J1170; J1741; J1885; J2250; J2270; J2405; J2550; J2704; J3010; J3490; J7050